=== PATIENT | female | born 1995 | race Caucasian/White ===

== ENCOUNTER 2019-10-30 16:48 | Inpatient (IN) | payer OTHER ==
[2019-10-30] MEDS ORDERED: Sodium Chloride 0.9% 10 ML Syringe FLUSH PRN (18:23)
[2019-10-30] MEDS ORDERED: Acetaminophen 325 MG Tab PO PRN (18:23)
[2019-10-30] MEDS ORDERED: Lidocaine 1% 30 ML SDV INJECT PRN (18:26)
[2019-10-30] MEDS ORDERED: Ondansetron 4 MG/2 ML SDV IV PRN (18:26)
[2019-10-30] MEDS ORDERED: Methylergonovine 0.2 MG/1 ML Amp IM PRN (18:26)
[2019-10-30] MEDS ORDERED: Carboprost Tromethamine 250 MCG/1 ML Amp IM PRN (18:26)
[2019-10-30] MEDS ORDERED: fentaNYL 100 MCG/2 ML SDV IVPUSH PRN (18:26)
[2019-10-30] MEDS ORDERED: Misoprostol 400 MCG (4 X 100 MCG TAB) RECTAL PRN (18:26)
[2019-10-30] MEDS ORDERED: Tranexamic Acid 1,000 MG in Sodium Chloride 0.9% 100 ML IV PRN (18:26)
[2019-10-30] MEDS ORDERED: Lactated Ringers 1,000 ML IV SCH (18:30)
[2019-10-30] MEDS ORDERED: Sodium Chloride 0.9% 1,000 ML IV SCH (19:25)
[2019-10-30] MEDS ORDERED: Magnesium Sulfate/Water 100 ML IV ONE (19:25)
[2019-10-30] MEDS: Lactated Ringers 1,000 ML IV SCH (19:41)
[2019-10-30] MEDS: Oxytocin/Normal Saline 30 UNIT/500 ML BAG IV SCH (19:44)
[2019-10-30] MEDS: hydrOXYzine HCl 25 MG Tab PO SCH (20:33)
[2019-10-30] MEDS: Labetalol 100 MG Tab PO SCH (20:34)
[2019-10-30] MEDS: Magnesium Sulfate/Water 20 GM/500 ML BAG IV SCH (20:46)
[2019-10-31] MEDS: hydrOXYzine HCl 25 MG Tab PO SCH ×3 (02:20→21:33)
[2019-10-31] MEDS: Magnesium Sulfate/Water 20 GM/500 ML BAG IV SCH ×2 (06:37→16:42)
[2019-10-31] MEDS: Labetalol 100 MG Tab PO SCH ×2 (08:29→21:12)
[2019-10-31] MEDS: Misoprostol 25 MCG (1/4 of 100 MCG) Tab VAG PRN ×4 (09:39→21:33)
--- NOTE | 2019-10-31 10:07 | PN ---
DATE: 10/31/2019 SUBJECTIVE: The patient is doing well. She had a good night and blood pressures have improved with her relaxing. She has been getting Pitocin through the night and notices when she has contractions and reports that they are stronger than what she has had in the past, but certainly easy to tolerate. No leakage of fluid or vaginal bleeding. movement has been good. No symptoms of preeclampsia at this time, and no other new complaints. OBJECTIVE: Vital Signs: Pulse in the 60s and 70s. Blood pressure is currently down to the 30s over 70s and 80s, highest overnight was 141/84 at 2 a.m., and last night shortly after admission, highest was 158/86. She is afebrile and respiratory rate of 16. Pelvic: Cervical exam performed this morning with nitrous oxide to assist with her being able to tolerate them, cervix is essentially closed, unable to really tell on the effacement, but feels like it is thinning and baby's station is at 0 and vertex. LABORATORY DATA: Magnesium is up to 5.4. Other labs from last night: White blood cell count 10.6, hemoglobin 12, platelets 124. BUN, creatinine, uric acid, AST, and ALT all normal. Lactate dehydrogenase mildly elevated at 219. Urine; 30 of protein on the dipstick, sjgsznn-je-ffixzhbfzv ratio of 0.62. ASSESSMENT: 1. A 40 and 2/7 weeks' gestation, 2, para 0-0-1-0. 2. Preeclampsia. PLAN: At this time, Pitocin has been all the way up to 20, and she has nothing for cervical change. Tibes shows coupling of the contractions and they are not strong enough to expect to be getting labor. At this time, we are going to discontinue the Pitocin, let her take a little bit of a break, and then we will place on Cytotec and see if we get improved cervical ripening through that method and recheck and change the plan as necessary. At the time being, she will continue on her magnesium sulfate as well, and we will allow blood pressure checks to decrease to half hour instead of every 15 minutes. [facility] /[id number]
[2019-10-31] MEDS ORDERED: hydrOXYzine HCl 25 MG Tab PO PRN (13:24)
[2019-11-01] MEDS: Misoprostol 25 MCG (1/4 of 100 MCG) Tab VAG PRN ×3 (01:48→11:29)
[2019-11-01] MEDS: Magnesium Sulfate/Water 20 GM/500 ML BAG IV SCH (04:23)
--- NOTE | 2019-11-01 10:23 | PN ---
DATE: 11/01/2019 SUBJECTIVE: Day #3, induction of labor for preeclampsia. This evening, the patient will be at 48 hours into the induction process, which was initially started with Pitocin and essentially made no progress, therefore, switched over to Cytotec, and she has been tolerating that and reports that she is now able to feel contractions. This gives her hope that she will be able to get into labor and have this baby vaginally. Otherwise, good movement. No chest pain or shortness of breath. No headaches or blurry vision. No right upper quadrant pain. No significant change in her edema. She has been quite sleepy because of the magnesium sulfate, but otherwise denies any acute concerns or new problems. OBJECTIVE: Vital Signs: Have been very good. Temperature is 98.0; pulse 68; blood pressure 140/84, generally had been in the mid 130s to 70s and 80s; respiratory rate of 16. HEART: Regular without any murmur. LUNGS: Clear to auscultation bilaterally. ABDOMEN: Gravid, nontender. heart tones tracing at 125 beats per minute at baseline. Accelerations are noted. Contractions are irregular, anywhere from every 2 to 7 minutes in between. On last cervical exam, she is 1 cm dilated, 65% effaced. Nurse can now palpate baby's head through the cervix and feels that reaching it is easier than it had been on prior checks. EXTREMITIES: 2+ edema bilaterally. Reflexes are 2+ and equal. ASSESSMENT: 1. A 40 and 3/7 weeks' gestation, 2, para 0-0-1-0. 2. Preeclampsia. 3. Prolonged induction. PLAN: At this time, we will continue to maximize our use of Cytotec to a total of 8 doses hoping to get to a Wheeler score of at least 7 before we need to switch over to Pitocin. Magnesium sulfate has been discontinued. She required 1 dose of p.o. labetalol when she first arrived for severe blood pressures. They have essentially been very good in the 140s over 90s at the highest and her seizure risk is a lot lower than would typically be anticipated and the magnesium sulfate may also be counterproductive for our efforts at induction of labor. We will see how that goes. The patient will continue to do her best to sit up when able to get gravity helping bring that baby down, and she has been advised to expect delivery sometime tomorrow unless we manage to have some surprise more rapid change prior to that. Her questions have been answered. [facility] /[id number]
[2019-11-01] MEDS: Labetalol 100 MG Tab PO SCH ×2 (10:44→21:00)
[2019-11-01] MEDS ORDERED: Nalbuphine 10 MG/1 ML Vial IM PRN (12:17)
[2019-11-01] MEDS: Lactated Ringers 1,000 ML IV SCH ×3 (14:07→20:35)
[2019-11-01] MEDS ORDERED: fentaNYL 100 MCG/2 ML SDV ONE (14:24)
[2019-11-01] MEDS ORDERED: Sodium Bicarbonate 4.2% 2.5 MEQ/5 ML SDV ONE (14:25)
[2019-11-01] MEDS ORDERED: EPINEPHrine 1 MG/1 ML Amp ONE (14:25)
[2019-11-01] MEDS ORDERED: ePHEDrine 50 MG/ML SDV ONE (14:26)
--- NOTE | 2019-11-01 14:45 | PCM.SN ---
- Free Text/Narrative Note: Intrathecal, sitting position, sterile prep and drape. 1% lidocaine w bicarb for skinwheal to L2 L3 interspace, introducer, 24 ga pemcan x 1. Pos CSF, neg heme, neg parasthesia. 20 mcg pf sufenta, 30 mcg pf fentanyl, 0.4 ml pf ns, 0.1 ml pf 1:1000 epi, and 6 mg of o.75% pf bupivacaine injected after CSF aspiration. Pt to L lateral position. Procedure time 1425 to 1455
[2019-11-01] MEDS: Oxytocin/Normal Saline 30 UNIT/500 ML BAG IV SCH ×3 (15:52→21:50)
[2019-11-01] MEDS ORDERED: Silver Nitrate Applicator Each ONE (21:00)
[2019-11-01] MEDS ORDERED: Ferric Subsulfate Topical Soln 8 GM (8 ML) Bottle ONE (21:00)
[2019-11-01] MEDS ORDERED: Oxytocin/Normal Saline 30 UNIT/500 ML BAG ONE (21:00)
[2019-11-01] MEDS ORDERED: Benzocaine/Menthol 20%-0.5% Spray 56 GM Canister TOP PRN (22:56)
[2019-11-01] MEDS ORDERED: Simethicone 80 MG Tab.Chew PO PRN (22:56)
[2019-11-01] MEDS: Piperacillin/Tazobactam 3.375 GM in Sodium Chloride 0.9% 100 ML IV SCH (23:39)
[2019-11-02] MEDS: Ibuprofen 800 MG Tab PO PRN ×3 (04:29→20:41)
--- NOTE | 2019-11-02 04:35 | DEL ---
DATE: 11/01/2019 PREPROCEDURE DIAGNOSES: 1. 40 and 3/7 weeks' intrauterine . 2. 2, para 0-0-1-0. 3. Preeclampsia. 4. Prolonged induction. POSTPROCEDURE DIAGNOSES: 1. 40 and 3/7 weeks' intrauterine . 2. 2, now para 1-0-1-1. 3. Preeclampsia. 4. Prolonged induction. 5. Post vacuum-assisted vaginal delivery. 6. Third-degree laceration repair. 7. Cervical laceration repair. 8. hemorrhage. 9. Asynclitic presentation. 10.Anemia of blood loss. BRIEF HISTORY: This is day #3 of the induction for patient, 23-year-old with the above-listed diagnoses. See prior progress notes for further details. The patient had been pushing for over an hour and was making very little progress and maternal exhaustion was clear. She was having a harder time with quality of pushes and would not be likely able to keep this up much longer and therefore vacuum-assisted vaginal delivery was offered. Baby also then started having some heart rate decelerations with contractions, so it was felt best to expedite delivery with vacuum assistance. Details are listed as below: PROCEDURE: With the patient in dorsal lithotomy position, vacuum discussion was had with the patient and her regarding indications of assisting because of maternal exhaustion as well as starting to develop some intolerance. Discussed with them risks including, but not limited to, vaginal trauma, trauma to the baby's head, potential for causing intraventricular hemorrhage, potential for shoulder dystocia, potential for failed vacuum and need of emergent section, potential for increased blood loss, and their questions were answered and we had agreed to proceed. Different positions were considered, but the patient was really unable to reposition herself. We had tried different pushing techniques during labor. The patient was appropriately prepared and there was a high probability of success. Baby was estimated to be appropriate for gestational age. Pelvis was adequate. She was in OA position and felt to be lined up normally and station of +2. Maximum number of pop offs was predetermined as 3 and application time would be a maximum of 20 minutes. The vacuum was applied and maximum pressure was in the green zone at 450 to 600 mmHg. Total application time was 5 minutes. Number of pop-offs 0. Standard Kiwi vacuum was the type used. With assisting through 2 contractions, she was able to deliver the baby. After the baby's head was brought out of the vagina with vacuum and removed, 3 nuchal cords were reduced bluntly. Remainder of the infant was delivered thereafter. With delivery of the head, the 's left hand was noted to be tucked up underneath the baby's chin. With delivery of the baby, she had been dried and stimulated. Mouth and nose were bulb suctioned and baby placed upon mother's abdomen. Three-vessel umbilical cord cutting was delayed by at least 1 to 2 minutes and cord blood sample was then obtained. Placenta was attempted to be delivered by gentle cord traction and concomitant uterine massage, but was not forthcoming. The patient was having heavy bleeding. Therefore, Pitocin was turned on at 9, 9, 9 and a dose of 800 mcg of Cytotec was placed in her rectum. New sterile gloves were donned and repeated efforts to deliver the placenta were made. There was a third-degree laceration present, but not an obvious source for the heavy bleeding. There was some concern of potential cervical laceration at that time and the placenta was still not letting go. Therefore, dose of TXA was called for. I manually removed the placenta, and during that process, I felt that there was a ridge or septation-like deformity in the fundus of the uterus, could possibly be a fibroid, which none of these things were previously noted on ultrasound. The area palpated approximately 3 cm in length by about 2 cm in width and seemed to run in the lateral [id number] plane rather than in the AP direction. After the placenta was removed, the patient's bleeding continued to be brisk. I inspected the vagina and cervix and found a fairly good-sized portion of trailing membranes which were removed with gauze and ring forceps. Uterus was bimanually massaged and very firm at this time. Bleeding continued. I was using sponges and sponge sticks to try and get adequate visualization of the vagina and cervix, and I was unable to see the posterior aspect of the cervix. I then took my fingers and ran them around the edge of the cervix and found a defect around the 7 to 8 o'clock position and had a concern for cervical laceration. Due to the rapid blood flow and inability to see the cervix for repair, I elected to place my hands in bimanual exam position and hold pressure on the area while calling for assistance of Dr. Palacios. During this time, the blood flow was very well controlled simply by tamponading the area. Once Dr. Palacios arrived, he assisted me with further inspection of the vagina and cervix. He agreed that there was a laceration present in the 7 to 8 o'clock position about a 1.5 cm to 2 cm in size. He successfully placed 1 or 2 stitches of 3-0 Vicryl through this and good hemostasis was achieved. The strings were left long while I proceeded to repair the third-degree laceration in standard fashion with 3-0 Vicryl. We had good approximation and hemostasis at this time. Dr. Palacios also explored the uterus himself, concurred that there was an abnormal feeling in the apex to posterior area of the uterus that would warrant further evaluation in the future. We gently reinspected the vagina and cervix. The cervical repair area remained hemostatic. The vaginal repair was intact and not bleeding. The patient was only having the normal serosanguineous type of drainage from the uterus that would be considered normal and had tolerated things quite well. Her intrathecal was still working well at this time, and we were able to perform all of the above procedures in the room. After the procedure was completed, sponge counts were correct. ESTIMATED BLOOD LOSS: 1.5 L. COMPLICATIONS: hemorrhage due to cervical laceration, suspected to be caused by baby's position of the hand up near the cheek, naturally followed thereafter by the elbow. There is possibility that the laceration was caused by the vacuum as well. DISPOSITION: The patient staying in the delivery room and her baby will be returned to her soon so they can initiate breast-feeding. Stat hemoglobin came back at 9.7. Her admission hemoglobin was 12.0. There are 2 units of packed red blood cells ready and on hold for her in the laboratory department should that be necessary. We will continue to keep a very close watch of her bleeding and monitor for any concerns and have a low threshold for reinspection should she start having heavier than expected bleeding. She will also be started on Zosyn antibiotics due to the repeat uterine exploration and the need for complicated repair. Anticipate that we will keep that going for the next 24 hours and then possibly switch her over to an oral antibiotic for longer coverage. [facility] /[id number]
[2019-11-02] MEDS: Piperacillin/Tazobactam 3.375 GM in Sodium Chloride 0.9% 100 ML IV SCH ×3 (05:12→20:41)
[2019-11-02] MEDS: Docusate Sodium 100 MG Cap PO PRN ×2 (09:17→20:41)
[2019-11-02] MEDS: Ferrous Sulfate 325 MG Tab PO SCH ×2 (09:17→20:41)
[2019-11-02] MEDS: Prenatal Multivitamin with Calcium/Folic Acid/Iron Tab PO SCH (09:17)
[2019-11-02] MEDS ORDERED: Lidocaine 5% Oint 35.44 GM Tube TOP ONE (09:33)
[2019-11-02] MEDS ORDERED: EPINEPHrine 1 MG/1 ML Amp ONE (11:48)
[2019-11-02] MEDS ORDERED: fentaNYL 100 MCG/2 ML SDV ITHECAL ONE (11:48)
[2019-11-02] MEDS ORDERED: Sodium Bicarbonate 4.2% 2.5 MEQ/5 ML SDV ONE (11:48)
--- NOTE | 2019-11-02 13:17 | PN ---
DATE: 11/02/2019 SUBJECTIVE: day #1, status post vacuum-assisted vaginal delivery complicated by cervical laceration and hemorrhage requiring manual removal of the placenta, repair of the surgical laceration, and third-degree repair. The patient's blood loss estimated 1500 to 2000 mL. She is denying any chest pain or shortness of breath. When she was up to ambulate, she denies any increase in chest pressure, lightheadedness, dizziness, or other typical symptoms of anemia. Her blood flow has been good overnight and appropriate for normal vaginal delivery. She is her baby, but her milk is not yet in as would be expected under these circumstances. Otherwise, her pain is controlled. She and nursing staff do not have any other acute concerns. Nurses report that she has not voided since delivery and they were preparing to straight catheterization, however, just before they did that they were able to get the patient to void spontaneously. OBJECTIVE: General: A pleasant 23-year-old female. Vital Signs: Temperature is 97.9, pulse of 80, blood pressure 138/82, respiratory rate of 16. Heart: Regular without murmur. Lungs: Clear to auscultation bilaterally. Abdomen: Soft and nontender. Fundus is firm and below the umbilicus. Extremities: 1+ pitting edema at this time. LABORATORY DATA: Hemoglobin is 7.0 and platelets 221. ASSESSMENT: 1. 2, now para 1-0-1-1. 2. Status post vacuum-assisted vaginal delivery, complicated. 3. Preeclampsia. 4. Post prolonged induction. 5. Post third-degree laceration repair. Post cervical laceration repair. 1. hemorrhage. 2. Anemia of blood loss. PLAN: Continue normal cares at this time. The patient has been stabilized and is doing well. Continue to watch for any sort of signs of infection and with the IV Zosyn. Monitor for worsening symptoms of anemia and consider blood transfusion would be necessary. Otherwise, continue normal course and anticipate discharge home tomorrow. Dr. Funes will be covering in my absence. [facility] /[id number]
[2019-11-03] MEDS: Ibuprofen 800 MG Tab PO PRN ×2 (07:37→15:55)
[2019-11-03] MEDS: Prenatal Multivitamin with Calcium/Folic Acid/Iron Tab PO SCH (09:10)
[2019-11-03] MEDS: Ferrous Sulfate 325 MG Tab PO SCH (09:10)
--- NOTE | 2019-11-03 09:16 | PCM.PNPP ---
- General Info Date of Service: 11/03/19 (Vacuum Assisted Vaginal Delivery PPD # 2) Functional Status: Reports: Pain Controlled, Tolerating Diet, Ambulating, Urinating - Review of Systems General: Reports: No Symptoms HEENT: Reports: No Symptoms Pulmonary: Reports: No Symptoms Cardiovascular: Reports: No Symptoms Gastrointestinal: Reports: No Symptoms Genitourinary: Reports: No Symptoms Musculoskeletal: Reports: No Symptoms Skin: Reports: No Symptoms Neurological: Reports: No Symptoms Psychiatric: Reports: No Symptoms - General Info Date of Service: 11/03/19 (Vacuum Assisted Vaginal Delivery PPD # 2) - Patient Data Vital Signs - Most Recent: Last Vital Signs Temp 99.4 F 11/03/19 07:37 Pulse 81 11/02/19 21:45 Resp 16 11/02/19 21:45 BP 105/88 11/02/19 21:45 Pulse Ox 100 11/02/19 21:45 Weight - Most Recent: 179 lb Lab Results - Last 24 Hours: Laboratory Results - last 24 hr 11/03/19 Range/Units 06:17 WBC 21.0 H (5.0-10.0) 10^3/uL RBC 2.16 L (4.2-5.4) 10^6/uL Hgb 6.6 L* (12.0-16.0) g/dL Hct 20.4 L* (37.0-47.0) % MCV 94.4 (80-100) fL MCH 30.6 (27.0-34.0) pg MCHC 32.4 L (33.0-35.0) g/dL Plt Count 223 (150-450) 10^3/uL Neut % (Auto) 66.2 (42.2-75.2) % Lymph % (Auto) 22.9 (20.5-50.1) % [place] % (Auto) 9.9 H (2-8) % Eos % (Auto) 0.9 L (1.0-3.0) % Baso % (Auto) 0.1 (0.0-1.0) % Add Manual Diff Yes Neutrophils % (Manual) 60 (42-75) % Band Neutrophils % 9 % Lymphocytes % (Manual) 22 (20-50) % Monocytes % (Manual) 8 (2-8) % Eosinophils % (Manual) 1 (1-3) % Med Orders - Current: Current Medications Acetaminophen (Tylenol) 650 mg PO Q4H PRN PRN Reason: Pain/Fever Benzocaine/Menthol (Dermoplast Pain Relief [place]) 0 gm TOP Q4H PRN PRN Reason: Perineal comfort measures Last Admin: 11/02/19 06:43 Dose: 1 spray Carboprost Tromethamine (Hemabate Ds) 250 mcg IM ASDIRECTED PRN PRN Reason: HEMORRHAGE Last Admin: 11/01/19 21:15 Dose: 250 mcg Docusate Sodium (Colace) 100 mg PO BID PRN PRN Reason: Constipation Last Admin: 11/02/19 20:41 Dose: 100 mg Ferrous Sulfate (Ferrous Sulfate) 325 mg PO BID KENISHA Last Admin: 11/03/19 09:10 Dose: 325 mg Oxytocin/Sodium Chloride (Pitocin In Ns 30 Unit/500 Ml) 30 unit in 500 mls @ 2 mls/hr IV TITRATE KENISHA; Protocol Last Admin: 11/01/19 21:50 Dose: 250 mls/hr Tranexamic Acid 1,000 mg/ (Sodium Chloride) 110 mls @ 660 mls/hr IV ONETIME PRN PRN Reason: Bleeding Last Admin: 11/01/19 20:27 Dose: 660 mls/hr Ibuprofen (Motrin) 800 mg PO Q8H PRN PRN Reason: Mild Pain or Fever Last Admin: 11/03/19 07:37 Dose: 800 mg Methylergonovine Maleate (Methergine) 0.2 mg IM ASDIRECTED PRN PRN Reason: Hemorrhage Misoprostol (Cytotec) 800 mcg RECTAL ASDIRECTED PRN PRN Reason: Hemorrhage Last Admin: 11/01/19 20:13 Dose: 800 mcg Prenat Multivit/Webb/Iron/Folic Ac ( Plus Iron) 1 each PO DAILY [facility] Last Admin: 11/03/19 09:10 Dose: 1 each Simethicone (Simethicone) 80 mg PO Q4H PRN PRN Reason: Gas Discontinued Medications Ephedrine Sulfate (Ephedrine Sulfate) Confirm Administered Dose 50 mg .ROUTE .STK-MED ONE Stop: 11/01/19 14:27 Last Admin: 11/01/19 15:58 Dose: Not Given Epinephrine HCl (Adrenalin) Confirm Administered Dose 1 mg .ROUTE .STK-MED ONE Stop: 11/01/19 14:26 Last Admin: 11/01/19 15:57 Dose: Not Given Epinephrine HCl (Adrenalin) 0.1 mg .XX .STK-MED ONE Stop: 11/02/19 11:49 Fentanyl (Sublimaze) 100 mcg IVPUSH Q1H PRN PRN Reason: Pain (moderate 4-6) Fentanyl (Sublimaze) Confirm Administered Dose 100 mcg .ROUTE .STK-MED ONE Stop: 11/01/19 14:25 Last Admin: 11/01/19 15:57 Dose: Not Given Fentanyl (Sublimaze) 30 mcg ITHECAL .STK-MED ONE Stop: 11/02/19 11:49 Ferric Subsulfate (Astringyn) Confirm Administered Dose 8 gm .ROUTE .STK-MED ONE Stop: 11/01/19 21:01 Hydroxyzine HCl (Atarax) 25 mg PO BEDTIME [facility] Last Admin: 10/31/19 21:33 Dose: Not Given Hydroxyzine HCl (Atarax) 25 mg PO Q8HR PRN PRN Reason: Sleep Lactated Ringer's (Ringers, Lactated) 1,000 mls @ 999 mls/hr IV ASDIRECTED [facility] Lactated Ringer's (Ringers, Lactated) 1,000 mls @ 125 mls/hr IV ASDIRECTED [facility] Last Admin: 11/01/19 20:35 Dose: 125 mls/hr Magnesium Sulfate (Magnesium Sulfate In Water Premix) 100 mls @ 200 mls/hr IV ONETIME ONE Stop: 10/30/19 19:54 Last Admin: 10/30/19 20:18 Dose: 200 mls/hr Magnesium Sulfate (Magnesium Sulfate In Water Premix) 20 gm in 500 mls @ 50 mls /hr IV TITRATE [facility] Last Infusion: 11/01/19 08:20 Dose: 0 mls/hr Sodium Chloride (Normal Saline) 1,000 mls @ 25 mls/hr IV ASDIRECTED [facility] Stop: 11/04/19 05:58 Last Admin: 11/01/19 03:53 Dose: 25 mls/hr Oxytocin/Sodium Chloride (Pitocin In Ns 30 Unit/500 Ml) Confirm Administered Dose 30 unit in 500 mls @ as directed .ROUTE .STK-MED ONE Stop: 11/01/19 21:01 Piperacillin Sod/Tazobactam (Sod 3.375 gm/ Sodium Chloride) 100 mls @ 200 mls/ hr IV Q6H [facility] Last Admin: 11/02/19 20:41 Dose: 200 mls/hr Labetalol HCl (Normodyne) 100 mg PO BID [facility] Last Admin: 11/01/19 21:00 Dose: Not Given Lidocaine HCl (Xylocaine-Mpf 1%) 30 ml INJECT ASDIRECTED PRN PRN Reason: Perineal Repair Lidocaine HCl (Lidocaine 5%) 0 gm TOP ONETIME ONE Stop: 11/02/19 09:34 Last Admin: 11/02/19 18:15 Dose: Not Given Misoprostol (Cytotec) 25 mcg VAG Q4H PRN PRN Reason: Other Last Admin: 11/01/19 11:29 Dose: 25 mcg Nalbuphine HCl (Nubain) 20 mg IM ONETIME PRN PRN Reason: Pain (moderate 4-6) Ondansetron HCl (Zofran) 4 mg IV Q4H PRN PRN Reason: Nausea/Vomiting Last Admin: 11/01/19 14:27 Dose: 4 mg Silver Nitrate (Silver Nitrate) Confirm Administered Dose 1 each .ROUTE .STK- MED ONE Stop: 11/01/19 21:01 Sodium Bicarbonate (Sodium Bicarbonate 4.2%) Confirm Administered Dose 2.5 meq .ROUTE .STK-MED ONE Stop: 11/01/19 14:26 Last Admin: 11/01/19 15:58 Dose: Not Given Sodium Bicarbonate (Sodium Bicarbonate 4.2%) 0.5 meq .XX .STK-MED ONE Stop: 11/02/19 11:49 Sodium Chloride (Saline Flush) 10 ml FLUSH ASDIRECTED PRN PRN Reason: Keep Vein Open Last Admin: 10/31/19 21:17 Dose: 10 ml Sufentanil Citrate (Sufenta) Confirm Administered Dose 50 mcg .ROUTE .STK-MED ONE Stop: 11/01/19 14:26 Last Admin: 11/01/19 15:58 Dose: Not Given Sufentanil Citrate (Sufenta) 20 mcg ITHECAL .STK-MED ONE Stop: 11/02/19 11:49 - Interaction Infant Disposition, : [place] in Room with Family Interaction: Holding Feeding: Attempted ; Nursed Fair/Poor Support Person: - Recovery Exam Fundal Tone: Firm Fundal Level: 1 Fingerbreadths Below Umbilicus Fundal Placement: Midline Lochia Amount: Small Lochia Color: Rubra/Red Perineum Description: Intact, Minimal Bruising/Swelling Episiotomy/Laceration: Approximated Bladder Status: Voiding Urinary Elimination: Not Voiding - Exam General: Alert, Oriented, Cooperative, No Acute Distress HEENT: Pupils Equal, Pupils Reactive, EOMI, Mucous Membr. Moist/[place] Neck: Supple Lungs: Clear to Auscultation, Normal Respiratory Effort Cardiovascular: Regular Rate, Regular Rhythm, No Murmurs GI/Abdominal Exam: Normal Bowel Sounds, Soft, Non-Tender, No Distention Extremities: Normal Inspection, Normal Range of Motion, Non-Tender Skin: Warm, Dry, Intact Wound/Incisions: Healing Well Neurological: No New Focal Deficit Psy/Mental Status: Alert, Normal Affect, Normal Mood - Problem List Review Problem List Initiated/Reviewed/Updated: Yes - Assessment Assessment:: PPD # 2 S/P Vacuum assisted vaginal delivery Acute anemia secondary to blood loss- Asymptomatic - Plan Plan:: Discharge to home Follow-up with Dr. Guerrier next week Iron, PNV and Ibuprofen as prescribed
--- NOTE | 2019-11-03 17:13 | DISCH ---
INDICATION FOR ADMISSION: Margot is a 23-year-old 2, para 0-0-1-0 female who reported to Labor and Delivery at 40-3/7 weeks' gestation because of preeclampsia. Magnesium sulfate for seizure prophylaxis. She did have Cytotec cervical ripening and Pitocin induction. There was a prolonged induction. Once she got to complete, she started pushingand she pushed for over an hour, was making very little progress and hadmaternal exhaustion. She started having a harder time pushing, so a vacuum- assisted vaginal delivery was accomplished with delivery of a viable femaleinfant weighing 7 pounds 9 ounces with score of 7 at one minute, 9 at fiveminutes over a third-degree perineal laceration. She did have a hemorrhage and was given Pitocin and was noted to be bleeding from her cervix. There was a laceration of the cervix that was repaired by Dr. Tushar Palacios and a third-degree laceration was repaired by Dr. Alexis Kent. She did quite well after this. She was noted to have approximately 1500 to 2000 mL blood loss. She was watched very closely and she tolerated the rest of her hospital stay quite well. She is afebrile. Vital signs are stable. She tolerated her diet well. She ambulated quite well. She was not lightheaded or dizzy. Her hemoglobin did drop to 6.6 on the day of discharge. She was offered a blood transfusion, but she declined this. She will increase her hemoglobin with iron and vitamins. There was a nuchal cord x3 around the infant at after recovery, she had no other complications of her hospital stay. Her blood pressures remained stable and normal throughout her post delivery hospital stay. She was discharged to home on day #2. LABORATORY AND DIAGNOSTIC STUDIES: On 11/01/2019, hemoglobin 9.7. 11/02/2019, hemoglobin 7.0, hematocrit 21.6, platelet count 221,000. 11/03/2019, hemoglobin 6.6, hematocrit 20.4, platelet count 223,000. DISCHARGE INSTRUCTIONS: 1. Discharge to home. 2. Followup with Dr. Alexis Kent next week for hemoglobin check along with infant check. 3. Iron/ferrous sulfate 325 mg twice a day. 4. Ibuprofen 800 mg 1 tablet t.i.d. p.r.n. for pain. 5. Tylenol t.i.d. p.r.n. for pain. 6. Colace b.i.d. p.r.n. for pain. 7. vitamin 1 tablet daily. 8. No douching, tampons, intercourse for 6 weeks. 9. Discharge instructions including activity, followup, medications, diet, and wound care were discussed with the patient. She understands these and is willing to comply with these. DISCHARGE DIAGNOSES: 1. 40-3/7 week intrauterine . 2. Preeclampsia with Magnesium sulfate for seizure prophylaxis. 3. Prolonged induction. 4. Vacuum-assisted vaginal delivery of a viable female infant weighing 7 pounds 9 ounces with score of 7 at one minute, 9 at five minutes. 5. Nuchal cord x3. 6. hemorrhage 7. Third-degree laceration, cervical laceration, both repaired. 8. Asynclitic presentation. 9. Acute anemia secondary to blood loss. [facility] /[id number] MTDD
== END 2019-11-03 17:00 | disposition home or self-care (01) | DRG 768 ==
LOC: DL.OBCHECK 16:48 → DL.OB 18:23 → OBSVTOIN 11-01 20:08
PROVIDERS: ADMIT Family Medicine; ATTEND Family Medicine
PROC: 10D07Z6 Extraction of Products of Conception, Vacuum, Via Natural or Artificial Opening (ICD-10-PCS; principal; 2019-11-01)
PROC: 00HU33Z Insertion of Infusion Device into Spinal Canal, Percutaneous Approach (ICD-10-PCS; 2019-11-01)
PROC: 3E0R3BZ Introduction of Anesthetic Agent into Spinal Canal, Percutaneous Approach (ICD-10-PCS; 2019-11-01)
PROC: 0DQR0ZZ Repair Anal Sphincter, Open Approach (ICD-10-PCS; 2019-11-01)
PROC: 10D17Z9 Manual Extraction of Products of Conception, Retained, Via Natural or Artificial Opening (ICD-10-PCS; 2019-11-01)
PROC: 0UQC7ZZ Repair Cervix, Via Natural or Artificial Opening (ICD-10-PCS; 2019-11-01)
PROC: 6A550ZT Pheresis of Cord Blood Stem Cells, Single (ICD-10-PCS; 2019-11-01)
PROC: 3E0P7VZ Introduction of Hormone into Female Reproductive, Via Natural or Artificial Opening (ICD-10-PCS; 2019-11-01)
PROC: 3E033VJ Introduction of Other Hormone into Peripheral Vein, Percutaneous Approach (ICD-10-PCS; 2019-11-01)
DX: O14.94 Unspecified pre-eclampsia, complicating childbirth (principal); Z37.0 Single live birth; D62 Acute posthemorrhagic anemia; Z3A.40 40 weeks gestation of pregnancy; O70.20 Third degree perineal laceration during delivery, unspecified; O71.3 Obstetric laceration of cervix; O75.81 Maternal exhaustion complicating labor and delivery; O69.81X0 Labor and delivery complicated by cord around neck, without compression, not applicable or unspecified; O32.8XX0 Maternal care for other malpresentation of fetus, not applicable or unspecified; O90.81 Anemia of the puerperium; O99.344 Other mental disorders complicating childbirth; F41.9 Anxiety disorder, unspecified; O99.62 Diseases of the digestive system complicating childbirth; K92.9 Disease of digestive system, unspecified; K58.9 Irritable bowel syndrome, unspecified; O13.4 Gestational [pregnancy-induced] hypertension without significant proteinuria, complicating childbirth; O76 Abnormality in fetal heart rate and rhythm complicating labor and delivery; O34.13 Maternal care for benign tumor of corpus uteri, third trimester; D25.9 Leiomyoma of uterus, unspecified; O72.2 Delayed and secondary postpartum hemorrhage
CPT/HCPCS: 36415; 51701; 59025; 59409; 81003; 82565; 82570; 83615; 83735; 84156; 84450; 84460; 84520; 84550; 85018; 85025; 85027; 86850; 86900; 86901; 86920; 86922; A9270-GY; J0171; J2405; J2543; J2590; J3010; J3475; J7030; J7050; J7120

== ENCOUNTER 2021-08-08 01:25 | Observation (INO) | payer SELFPAY ==
[2021-08-08] MEDS ORDERED: Acetaminophen 325 MG Tab PO PRN (03:18)
[2021-08-08] MEDS ORDERED: ePHEDrine 50 MG/ML SDV IVPUSH PRN (03:18)
[2021-08-08] MEDS ORDERED: Naloxone 2 MG/2 ML Syringe IVPUSH PRN (03:18)
[2021-08-08] MEDS ORDERED: Ondansetron 4 MG/2 ML SDV IVPUSH PRN ×2 (03:18)
[2021-08-08] MEDS ORDERED: Promethazine 25 MG/ML SDV IM PRN (03:18)
[2021-08-08] MEDS ORDERED: Methylergonovine 0.2 MG/1 ML Amp IM PRN (03:18)
[2021-08-08] MEDS ORDERED: Famotidine 20 MG/2 ML SDV IVPUSH PRN (03:18)
[2021-08-08] MEDS ORDERED: Sodium Chloride 0.9% 10 ML Syringe FLUSH PRN (03:18)
[2021-08-08] MEDS ORDERED: Lactated Ringers 1,000 ML IV ONE (03:18)
[2021-08-08] MEDS ORDERED: Carboprost Tromethamine 250 MCG/1 ML Amp IM PRN (03:18)
[2021-08-08] MEDS ORDERED: Lidocaine 1% 30 ML SDV INJECT PRN (03:18)
[2021-08-08] MEDS ORDERED: Tranexamic Acid 1,000 MG in Sodium Chloride 0.9% 100 ML IV PRN (03:18)
[2021-08-08] MEDS ORDERED: Misoprostol 400 MCG (4 X 100 MCG TAB) RECTAL PRN (03:18)
[2021-08-08] MEDS ORDERED: Lactated Ringers 1,000 ML IV SCH (03:30)
[2021-08-08] MEDS ORDERED: Lactated Ringers 500 ML IV SCH (03:30)
[2021-08-08] MEDS ORDERED: Oxytocin/Normal Saline 30 UNIT/500 ML BAG IV SCH (03:30)
--- NOTE | 2021-08-08 05:02 | HP ---
CHIEF COMPLAINT: Increased force and frequency of contractions. HISTORY OF PRESENT ILLNESS: A 25-year-old 3, para 1-0-1-1, currently at 38-6/7 weeks' gestation, reporting to Labor and Delivery with onset of regular contractions earlier tonight approximately every 7 to 8 minutes and then during the drive to the hospital became every 3 minutes. No leakage of fluid or vaginal bleeding. movement has been good. She denies any symptoms of preeclampsia. She is concerned about potential for repeat cervical laceration with hemorrhage as she had with her first delivery and that the baby seems to be measuring a little bit on the large side and how well the baby will come down and basically how labor will progress. Otherwise, no acute concerns. OBSTETRICAL HISTORY: 1. 12/20/2018, 4 weeks 6 days' gestation, had a spontaneous and did not require any intervention. 2. 11/01/2019, 40 weeks 3 days' gestation, spontaneous vaginal delivery, baby girl weighing 3415 g. There was an estimated 1500 to 2000 mL of blood loss due to a cervical laceration. Daughter's name is Desiree. At that delivery, it was noted that she had a small septum that ran across the top of the uterus in the lateral plane. OBSTETRICAL LABORATORIES: Blood type O positive, antibody screen negative, rubella immune, syphilis nonreactive x2, hepatitis B negative, HIV negative, gonorrhea and chlamydia negative, TSH normal at 0.61, hepatitis C negative, wet prep negative, last hemoglobin in the office 12.0, platelets 193, group B strep negative. PAST MEDICAL HISTORY: Anxiety, irritable bowel syndrome, miscarriage x1, primary Raynaud phenomenon, and uterine shape abnormality. PAST SURGICAL HISTORY: None. FAMILY HISTORY: Mother is alive and well. Father has anxiety, prediabetes, and cardiac arrhythmia. Sister has an arrhythmia. Brother is alive and well. Maternal grandmother is alive and well. Maternal grandfather is alive, had a stroke in his 60s and some heart disease. Paternal grandmother is and had diabetes. Paternal grandfather is , had parkinsonism and a pacemaker. Paternal aunt has seizures. A paternal great grandmother had a history of twins. FAMILY HISTORY: Negative for defects, cystic fibrosis, anesthesia problems, or bleeding and clotting disorders. SOCIAL HISTORY: The patient does not use any tobacco, alcohol, or drugs. She and her were in 2014. He works as a gaitan, and she stays at home with their daughter. This was a planned . REVIEW OF SYSTEMS: Pertinent positives and negatives are per the history of present illness. No fevers, chills, chest pain, shortness of breath, headaches, blurry vision, right upper quadrant pain, nausea, vomiting, diarrhea, constipation, or acute skin changes. OBJECTIVE: Vital Signs: Blood pressure 130/86 initially, decreased on recheck; pulse 78; respiratory rate of 18; and temperature 98.0. HEENT: Grossly unremarkable. Neck: Supple without adenopathy. Heart: Regular without murmur. Lungs: Clear to auscultation bilaterally. Abdomen: Gravid, firm with contractions. Increased vascular markings are noted. [place] shows heart rate at 115 beats per minute at baseline. Moderate [id number] variability and accelerations are noted. Contractions every 3 minutes. Pelvic: Cervical exam per the nurse is about 3 cm dilated, 90% effaced, 0 station. Bag of water is intact. Baby is vertex. Extremities: No edema, erythema, or tenderness. Neurological: No focal findings. ASSESSMENT: 1. A 38-6/7 weeks' intrauterine based on last menstrual period. 2. 3, para 1-0-1-1. 3. History of cervical laceration and hemorrhage with the last delivery. 4. History of spontaneous miscarriage. 5. Uterine septum. 6. Irritable bowel syndrome. 7. Anxiety. 8. Primary Raynaud phenomenon. PLAN: The patient will be admitted to Labor and Delivery, and we will be anticipating a natural labor course. We will intervene with augmentation if necessary. We will be on high alert for potential repeat cervical laceration as a potential cause of hemorrhage and take active management steps. We will also keep her family well informed. I did review with her that things are expected to go fairly well at around 37 weeks. She had an ultrasound showing the baby was measuring at the 84.3rd percentile. Estimated weight at that time was 3243 g, so this baby may end up being larger than her first, however, not anticipating significant macrosomia. [facility] /[id number]
== END 2021-08-08 10:10 | disposition home or self-care (01) ==
LOC: DL.OBCHECK 01:25 → DL.OB 02:55
PROVIDERS: ADMIT Family Medicine; ATTEND Family Medicine
DX: O47.1 False labor at or after 37 completed weeks of gestation (principal); Z3A.38 38 weeks gestation of pregnancy; O99.343 Other mental disorders complicating pregnancy, third trimester; I73.00 Raynaud's syndrome without gangrene; Z20.822 Contact with and (suspected) exposure to COVID-19
CPT/HCPCS: 36415; 85027; 87635; G0378; U0002

== ENCOUNTER 2021-08-12 08:05 | Inpatient (IN) | payer SELFPAY ==
[~2021-08-12 08:05] MED LIST: Acetaminophen 325 MG Tab PO PRN; Carboprost Tromethamine 250 MCG/1 ML Amp IM PRN; Lactated Ringers 1,000 ML IV ONE; Lactated Ringers 500 ML IV SCH; Lidocaine 1% 30 ML SDV INJECT PRN; Methylergonovine 0.2 MG/1 ML Amp IM PRN; Misoprostol 400 MCG (4 X 100 MCG TAB) RECTAL PRN; Naloxone 2 MG/2 ML Syringe IVPUSH PRN; Ondansetron 4 MG/2 ML SDV IVPUSH PRN; Oxytocin/Normal Saline 30 UNIT/500 ML BAG IV SCH; Promethazine 25 MG/ML SDV IM PRN; Sodium Chloride 0.9% 10 ML Syringe FLUSH PRN; Tranexamic Acid 1,000 MG in Sodium Chloride 0.9% 100 ML IV PRN; ePHEDrine 50 MG/ML SDV IVPUSH PRN; fentaNYL 100 MCG/2 ML SDV IVPUSH PRN
[2021-08-12] MEDS: Lactated Ringers 1,000 ML IV SCH (10:38)
[2021-08-12] MEDS: Oxytocin/Normal Saline 30 UNIT/500 ML BAG IV SCH ×2 (10:40→22:08)
[2021-08-12] MEDS ORDERED: Sodium Chloride 0.9% 20 ML SDV ONE (16:10)
[2021-08-12] MEDS ORDERED: EPINEPHrine 1 MG/ML SDV ONE ×2 (16:10→16:22)
[2021-08-12] MEDS ORDERED: fentaNYL 100 MCG/2 ML SDV ITHECAL ONE (16:10)
[2021-08-12] MEDS ORDERED: fentaNYL 100 MCG/2 ML SDV ONE (16:21)
[2021-08-12] MEDS ORDERED: Sodium Bicarbonate 4.2% 2.5 MEQ/5 ML SDV ONE (16:22)
--- NOTE | 2021-08-12 16:54 | PCM.SN.2 ---
- Free Text/Narrative Note: Intrathecal. Sitting position, sterile prep and drape. 1% lidocaine w bicarb for skinwheal to L2 L3 interspace. Introducer, 24 ga pencan x 2. 0.1 ml of I:1000 pf epi wash, 20 mcg pf sufenta, 30 mcg pf fentanyl, 0.4 ml pf NS and 6 mg of 0.75% pf Marcaine injected after CSF aspiration. Pt to L lateral position. Procedure time 1620 to 1655 Time Documentation
[2021-08-12] MEDS ORDERED: Benzocaine/Menthol 20%-0.5% Spray 78 GM Cannister TOP PRN (22:37)
[2021-08-12] MEDS ORDERED: Simethicone 80 MG Tab.Chew PO PRN (22:37)
[2021-08-12] MEDS ORDERED: Oxytocin 10 Units/1 ML SDV IM PRN (22:37)
[2021-08-12] MEDS ORDERED: ceFAZolin 1 GM in Sodium Chloride 0.9% 50 ML IV SCH (23:56)
--- NOTE | 2021-08-13 04:07 | DEL ---
DATE: 08/12/2021 PREPROCEDURE DIAGNOSES: 1. 39 and 3/7 weeks intrauterine . 2. 3, para 1-0-1-1. 3. History of cervical laceration with hemorrhage after her 1st delivery. 4. History of spontaneous x1. 5. Lateral oriented uterine septum found at 1st delivery. 6. Irritable bowel syndrome. 7. Anxiety. 8. Placenta with septum noted on ultrasound. growth has been good. 9. Primary Raynaud's phenomenon. 10.Group B strep negative. 11.Blood type O positive and rubella immune. POSTPROCEDURE DIAGNOSES: 1. 39 and 3/7 weeks intrauterine . 2. 3, now para 2-0-1-2. 3. History of cervical laceration with hemorrhage after her 1st delivery. 4. History of spontaneous x1. 5. Lateral oriented uterine septum found at 1st delivery. 6. Irritable bowel syndrome. 7. Anxiety. 8. Placenta with septum noted on ultrasound. growth has been good. 9. Primary Raynaud's phenomenon. 10.Group B strep negative. 11.Blood type O positive and rubella immune. 12.Status post spontaneous vaginal delivery with third-degree laceration repair. 13.Uterine inversion. 14. hemorrhage. 15.Manual repositioning of the uterus. 16.Circumvallate placenta with shelf, noted to be circumferential, also associated calcification consistent overall with likely vanishing twin as the etiology. 17.Hypovolemic shock. BRIEF HISTORY: A 25-year-old female brought into the hospital earlier today for planned induction of labor due to concern for macrosomia, 20-week ultrasound. Baby was above the 90th percentile for weight and on 2nd ultrasound at 34 weeks was about 84% for growth. CAMERON was only 14.2. With her history of cervical laceration, it was felt beneficial to have her induced at 39 weeks to help decrease risk of macrosomia complicating delivery. She presented to the hospital and was already having some spontaneous contractions that were not very strong. Pitocin was initiated and she had reached about 7 cm dilated and intrathecal was placed for her comfort. I then came in and assessed her and baby was still ballotable and she was having very regular painful contractions. So, artificial rupture of membranes was carefully performed with copious amounts of clear fluid much more than was anticipated. She then went on to complete, and after 8 hours of stage I, pushed for 1 hour and 20 minutes resulting in a vaginal delivery with details as noted below. The placenta did deliver about 30 minutes after the baby was born. PROCEDURES: With the patient in dorsal lithotomy position and somewhat Melo, she delivered a viable male over intact perineum. Baby had strong instantaneous cry and he was dried and stimulated and bulb suction performed. He was then placed up on his mother's abdomen and then started some breath holding spells but maintained adequate heart rate. Three-vessel umbilical cord was doubly clamped and cut and baby taken over to the warmer by about 30 seconds of age at which time he was responding well to drying, stimulating, and further bulb suctioning and doing quite well. Attention returned to the mother and cord blood sample was obtained and then attempted to deliver the placenta and it was not forthcoming. Therefore, labia and vagina inspected. There was a third-degree laceration which was anesthetized with 1% lidocaine without epinephrine and repaired with 3-0 Vicryl in the usual fashion with good reapproximation and hemostasis. A couple more attempts during the repair were attempted to deliver the placenta and it did not easily come. After the perineal repair was completed, the patient was complaining of increased uterine cramping, pain and with her baseline anxiety, we felt that she was having early symptoms of vasovagal reaction due to the adrenaline from her delivery as well as discomfort from the uterine cramping; however, her lips became pale and her eyes rolled back in her head, and it was clear that she was going into shock. We called for an emergency staff response anticipating the need to start [place] resuscitative measures. Placenta was then quickly delivered by cord traction and concomitant uterine massage. With the placenta, there was approximately 1500 mL of clot and blood expressed simultaneously. A quick manual exploration was performed and placenta was felt in the vagina inverted; therefore, with assisted hand I was able to manually replace the uterus back into its appropriate position. One of the nurses did need to help from the external abdomen to apply force downward on the uterine fold to help it flip back into place, after which time the uterus palpated and no remaining tissue was appreciated. With continued bimanual massage, bleeding was readily controlled. After a couple of minutes, she did start bleeding a little bit more. So, uterus was manually explored with return of small amount of additional clot and then started to clamp down much better. During this time, we had run the Pitocin at 999. She was given a dose of IM Methergine and Cytotec was called for to be placed rectally to help ensure adequate uterine tone. Bleeding at this point was controlled. We continued to watch her for several minutes to make sure that it did not take up again. Vagina and cervix were inspected, and intact. Third-degree laceration repair site remained hemostatic and patient was currently awake and we are running a bolus of IV fluids to help with resuscitation and 2 units of packed red blood cells were ordered from the laboratory as well. The patient was recuperating well and blood loss was controlled with just a normal amount of trickling noted at that time. FINDINGS: Placenta inspected and found to have a circumferential circumvallate placenta with membrane shelf which occurs only in 1% to 7% of pregnancies frequently associated with multiples or some sort of uterine infection earlier in the or when the placenta is trying to grow too large and becomes overly adherent to the uterus. There was also a large area of calcification on the placenta adjacent to the umbilical cord which very well could represent a vanishing twin, and this could also be the source of circumvallate shelf that was seen and could have contributed to the uterine inversion with a large amount of bleeding and clot that presented with delivery of the placenta. It is hard to say if she was already inverted while we were awaiting for the placenta or if the uterus was iatrogenically inverted with rapid delivery of the placenta in anticipation of starting resuscitative measures for the mother. Baby is a viable male, score of 8 and 9. Initial set of weight and length measurements is currently pending. DISPOSITION: Mother and baby to stay in the room at this time. Blood transfusion has been ordered and I anticipate she will be feeling much better soon. She did also receive a liter of IV fluids during our resuscitative efforts. At no time did she lose control of her airway, undergo cardiac or respiratory arrest. She did have syncope, however. See nurse's notes for additional comments. COMPLICATIONS: hemorrhage with uterine inversion causing hypovolemic shock. [facility] [place] /[id number]
[2021-08-13] MEDS: Lactated Ringers 1,000 ML IV SCH (04:55)
[2021-08-13] MEDS: Prenatal Multivitamin with Calcium/Folic Acid/Iron Tab PO SCH (09:21)
[2021-08-13] MEDS: Ibuprofen 800 MG Tab PO PRN ×2 (09:21→18:35)
[2021-08-13] MEDS: Docusate Sodium 100 MG Cap PO PRN ×2 (09:21→21:00)
[2021-08-13] MEDS ORDERED: ceFAZolin 1 GM in Sodium Chloride 0.9% 50 ML IV SCH (10:00)
[2021-08-13] MEDS: ceFAZolin 1 GM in Sodium Chloride 0.9% 50 ML IV SCH ×2 (10:20→18:10)
[2021-08-13] MEDS: Sodium Chloride 0.9% 10 ML Syringe FLUSH PRN ×2 (10:25→18:48)
--- NOTE | 2021-08-13 16:59 | PN ---
DATE: 08/13/2021 TIME SEEN: Approximately 8 a.m. SUBJECTIVE: Post vaginal delivery, day #1, 25-year-old, 3, now para 2-0- 1-2, delivered at 9:20 last night via spontaneous vaginal delivery with third- degree laceration repair, complicated by hemorrhage estimated at 2000 to 2500 mL with uterine inversion, successfully repositioned manually. She also had hypovolemic shock at the time of delivery and resuscitated well with bolus fluid, supportive measure, hemostasis, and overnight has received 2 units of packed red blood cells. Nurses reports that the patient has been doing well. She is voiding. She denies any chest pain, shortness of breath. Has not really been up and ambulate very much at this point but feels significantly better than she did last night. She is attempting breast-feeding with her baby. She actually is very tired as would be expected. Reports that the vaginal bleeding is good at this time and less than that of a normal, and she is looking forward to an uncomplicated recovery . Her understands the event of last night and the patient has an understanding as well. However, I do plan on talking to her more about it after she had some additional rest. OBJECTIVE: Vital Signs: Heart: Regular without murmur. Lungs: Clear to auscultation bilaterally. Abdomen: Soft, nontender. Fundus is firm, well below the umbilicus, normal position. Extremities: No edema, erythema, or tenderness noted. Skin: Back to normal color. Good pink tone in her legs. Neurologic: Appropriate. Good fund of knowledge and understanding of the events on delivery, articulating and comprehending things well at this time. Psychiatric: Feeling some degree of surprise and shock about the complications associated with delivery. Anxiety is at baseline. No new depression or other concerning symptoms. LABORATORY DATA: CBC per this morning is currently pending. Blood transfusions were not completed until the middle of night and I postponed the CBC until 6 hours after second transfusion. ASSESSMENT: 1. Postvaginal delivery day #1. 2. Status post hemorrhage with hypovolemic shock. Patient now stabilized. 3. Status post manual reposition of inverted uterus. 4. Status post third-degree laceration repair. 5. Status post transfusion of 2 units of packed red blood cells. 6. History of hemorrhage due to cervical laceration with first delivery. 7. Anxiety. 8. Irritable bowel syndrome. 9. History of preeclampsia in first . 10.History of Raynaud's. 11.Delivery of macrosomic male infant weighing 9 pounds, 4090 g. 12.Circumvallate placenta with calcification consistent with likely having had a vanishing twin. PLAN: Continue care for vaginal delivery at this time. We will assess what her hemoglobin is and see how she does clinically to see if repeat blood transfusion is necessary. Anticipate another CBC in the morning and discharge home tomorrow as long as all things continue to go well. She is receiving Ancef as antibiotic prophylaxis given the circumvallate placenta as well as the need for manual repositioning of the uterus. Her questions have been answered at this time, and we will continue to follow closely if any issue should arise. [facility] /[id number]
[2021-08-13] MEDS: Ferrous Sulfate 325 MG Tab PO SCH (18:35)
[2021-08-13] MEDS ORDERED: Witch Hazel Medicated Pads 100/Jar TOP PRN (19:08)
[2021-08-14] MEDS: ceFAZolin 1 GM in Sodium Chloride 0.9% 50 ML IV SCH ×3 (02:22→18:29)
[2021-08-14] MEDS: Ibuprofen 800 MG Tab PO PRN ×3 (02:23→17:20)
[2021-08-14] MEDS: Prenatal Multivitamin with Calcium/Folic Acid/Iron Tab PO SCH (09:03)
[2021-08-14] MEDS: Docusate Sodium 100 MG Cap PO PRN (09:03)
[2021-08-14] MEDS: Ferrous Sulfate 325 MG Tab PO SCH ×2 (09:03→18:29)
== END 2021-08-14 17:30 | disposition home or self-care (01) | DRG 768 ==
LOC: DL.OBCHECK 08:05 → DL.OB 08:12 → INTOOBSV 09:52 → OBSVTOIN 09:52 → DL.OB 09:53 → OBSVTOIN 21:19
PROVIDERS: ADMIT Family Medicine; ATTEND Family Medicine
PROC: 10E0XZZ Delivery of Products of Conception, External Approach (ICD-10-PCS; principal; 2021-08-12)
PROC: 0DQR0ZZ Repair Anal Sphincter, Open Approach (ICD-10-PCS; 2021-08-12)
PROC: 00HU33Z Insertion of Infusion Device into Spinal Canal, Percutaneous Approach (ICD-10-PCS; 2021-08-12)
PROC: 3E0R3BZ Introduction of Anesthetic Agent into Spinal Canal, Percutaneous Approach (ICD-10-PCS; 2021-08-12)
DX: O99.344 Other mental disorders complicating childbirth (principal); Z37.0 Single live birth; O70.20 Third degree perineal laceration during delivery, unspecified; O72.1 Other immediate postpartum hemorrhage; Z3A.39 39 weeks gestation of pregnancy; Z20.822 Contact with and (suspected) exposure to COVID-19
CPT/HCPCS: 01967; 36415; 36430; 51701; 59409; 85025; 85027; 86850; 86900; 86901; 86920; 86922; A9270-GY; J0171; J0690; J2210; J2405; J2590; J3010; J7120; P9016; U0002

== ENCOUNTER 2021-08-22 14:44 | Observation (INO) | payer SELFPAY ==
[2021-08-22] MEDS ORDERED: Sodium Chloride 0.9% 1,000 ML IV ONE (14:59)
[2021-08-22] MEDS ORDERED: Clindamycin Phosphate 900 MG in Sodium Chloride 0.9% 100 ML IV ONE (15:01)
[2021-08-22] MEDS ORDERED: Morphine 2 MG/ML SYRINGE IVPUSH ONE (15:05)
[2021-08-22] MEDS ORDERED: Morphine 2 MG/ML SYRINGE ONE (15:06)
[2021-08-22] MEDS ORDERED: Oxytocin/Normal Saline 30 UNIT/500 ML BAG IV SCH (15:15)
--- NOTE | 2021-08-22 15:21 | EDM.PDOC ---
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 Patient states she has had fever up to 101 and chills. Patient is , vaginally delivered on 08/12/2021. Has been nursing, states she has had mastitis which she thought was resolving. She states yesterday she began with body aches and generalized flu symptoms. Patient states she did have a large gush of blood as well as foul-smelling vaginal discharge prior to arrival to the ER. Onset: Today - Related Data Allergies Allergy/AdvReac Type Severity Reaction Status Date / Time No Known Allergies Allergy Verified 08/08/21 05:00 Home Meds: Home Meds Pnv No.95/Ferrous Fum/Folic AC [ Vitamins Tablet] 1 tab PO DAILY 10/30/19 [History] Acetaminophen [Tylenol] 650 mg PO Q4H PRN tablet 11/02/19 [Rx] Docusate Sodium [Colace] 100 mg PO BID PRN cap 11/02/19 [Rx] Ferrous Sulfate 325 mg PO BID tablet 11/02/19 [Rx] Acetaminophen [Tylenol] 650 mg PO Q4H PRN tablet 08/13/21 [Rx] Ibuprofen [Motrin] 800 mg PO Q8H PRN tablet 08/13/21 [Rx] Past Medical History - Past Health History Medical/Surgical History: Denies Medical/Surgical History HEENT History: Reports: None Cardiovascular History: Reports: None, Other (See Below) Other Cardiovascular History: Primary Raynauds Respiratory History: Reports: None Gastrointestinal History: Reports: Irritable Bowel Syndrome Genitourinary History: Reports: None 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: Musculoskeletal History: Reports: None Neurological History: Reports: None Psychiatric History: Reports: Anxiety Endocrine/Metabolic History: Reports: None Hematologic History: Reports: None Immunologic History: Reports: None Oncologic (Cancer) History: Reports: None Dermatologic History: Reports: None - Infectious Disease History Infectious Disease History: Reports: Chicken Pox - Past Surgical History Head Surgeries/Procedures: Reports: None Female Surgical History: Reports: None Neurological Surgical History: Reports: None Dermatological Surgical History: Reports: None Social & Family History - Family History Family Medical History: No Pertinent Family History - Caffeine Use Caffeine Use: Reports: None ED ROS GENERAL - Review of Systems Review Of Systems: Comprehensive ROS is negative, except as noted in HPI. ED EXAM, GENERAL - Physical Exam Exam: See Below Exam Limited By: No Limitations General Appearance: Alert, WD/WN, Mild Distress Eye Exam: Bilateral Eye: EOMI, Normal Inspection Ears: Normal External Exam, Hearing Grossly Normal Nose: Normal Inspection Throat/Mouth: Normal Inspection, Normal Voice, No Airway Compromise Head: Atraumatic, Normocephalic Neck: Normal Inspection, Supple, Non-Tender, Full Range of Motion Respiratory/Chest: No Respiratory Distress, Lungs Clear, Normal Breath Sounds, No Accessory Muscle Use, Chest Non-Tender Cardiovascular: Normal Peripheral Pulses, Regular Rate, Rhythm, No Edema, No Gallop, No JVD, No Murmur, No Rub Peripheral Pulses: 2+: Radial (L), Radial (R) GI/Abdominal: Normal Bowel Sounds, Soft, Non-Tender (Female) Exam: Vaginal Bleeding, Vaginal Discharge Rectal (Female) Exam: Deferred Back Exam: Normal Inspection, Full Range of Motion Extremities: Normal Inspection, Normal Range of Motion, Non-Tender, Normal Capillary Refill, No Pedal Edema Neurological: Alert, Oriented, CN II-XII Intact, Normal Cognition, Normal Gait, Normal Reflexes, No Motor/Sensory Deficits Psychiatric: Normal Affect, Normal Mood Skin Exam: Warm, Dry, Intact, Normal Color, No Rash Lymphatic: No Adenopathy Course - Vital Signs Last Recorded V/S: Last Vital Signs Temp 98.9 F 08/22/21 14:42 Pulse 80 08/22/21 14:42 Resp 20 08/22/21 14:42 BP 137/89 08/22/21 14:42 Pulse Ox 100 08/22/21 14:42 - Orders/Labs/Meds Orders: Active Orders 24 hr Category Date Time Status Admission Diagnosis [ADT] Stat ADT 08/22/21 15:32 Ordered Admission Status [Patient Status] [ADT] Routine ADT 08/22/21 15:32 Active Patient Status Manage Transfer [TRANSFER] Routine ADT 08/22/21 15:59 Active Pelvis Non OB Comp [US] Urgent Exams 08/22/21 14:46 Ordered CORONAVIRUS COVID-19 RAPID [MOLEC] Stat Lab 08/22/21 15:58 Received CULTURE BLOOD [BC] Stat Lab 08/22/21 15:07 Received CULTURE BLOOD [BC] Stat Lab 08/22/21 15:24 Received CULTURE GENITAL [RM] Routine Lab 08/22/21 14:53 Received TYPE AND SCREEN [BBK] Stat Lab 08/22/21 15:07 Received Oxytocin/Normal Saline [Pitocin in NS 30 UNIT/500 ML] Med 08/22/21 15:15 Active 30 unit in 500 ml IV TITRATE Blood Culture x2 Reflex Set [OM.PC] Stat Oth 08/22/21 15:08 Ordered Medication Orders Oxytocin/Sodium Chloride (Pitocin In Ns 30 Unit/500 Ml) 30 unit in 500 mls @ 500 mls/hr IV TITRATE KENISHA; Protocol Last Admin: 08/22/21 15:52 Dose: 500 mls/hr Documented by: NASIR Labs: Laboratory Tests 08/22/21 08/22/21 08/22/21 Range/Units 15:07 15:07 15:07 WBC 15.9 H (5.0-10.0) 10^3/uL RBC 3.66 L (4.2-5.4) 10^6/uL Hgb 11.3 L D (12.0-16.0) g/dL Hct 34.7 L (37.0-47.0) % MCV 94.8 D (80-100) fL MCH 30.9 (27.0-34.0) pg MCHC 32.6 L (33.0-35.0) g/dL Plt Count 441 D (150-450) 10^3/uL Neut % (Auto) 83.5 H (42.2-75.2) % Lymph % (Auto) 9.2 L (20.5-50.1) % [place] % (Auto) 6.5 (2-8) % Eos % (Auto) 0.6 L (1.0-3.0) % Baso % (Auto) 0.2 (0.0-1.0) % Add Manual Diff Yes Neutrophils % (Manual) 75 (42-75) % Band Neutrophils % 10 % Lymphocytes % (Manual) 10 L (20-50) % Monocytes % (Manual) 5 (2-8) % Sodium 141 (136-145) mmol/L Potassium 3.8 (3.5-5.1) mmol/L Chloride 103 (98-107) mmol/L Carbon Dioxide 23 (21-32) mmol/L Anion Gap 18.8 H (7-13) mEq/L BUN 16 (7-18) mg/dL Creatinine 0.75 (0.55-1.02) mg/dL Est Cr Clr Drug Dosing TNP Estimated GFR (MDRD) > 60 BUN/Creatinine Ratio 21.3 (No establ ref range) Glucose 92 (70-99) mg/dL Lactic Acid 0.9 (0.4-2.0) mmol/L Calcium 9.2 (8.5-10.1) mg/dL Total Bilirubin 0.6 (0.2-1.0) mg/dL AST 19 (15-37) U/L ALT 32 (14-59) U/L Alkaline Phosphatase 145 H (46-116) U/L Total Protein 7.5 (6.4-8.2) g/dL Albumin 3.3 L (3.4-5.0) g/dL Globulin 4.2 Albumin/Globulin Ratio 0.79 Meds: Medications Generic Name Dose Route Start Last Admin Trade Name Freq PRN Reason Stop Dose Admin Oxytocin/Sodium Chloride 30 unit in 500 mls @ 500 mls/hr 08/22/21 15:15 08/22/21 15:52 Pitocin In Ns 30 Unit/500 Ml IV 500 mls/hr TITRATE KENISHA Administration Protocol Discontinued Medications Generic Name Dose Route Start Last Admin Trade Name Freq PRN Reason Stop Dose Admin Sodium Chloride 1,000 mls @ 999 mls/hr 08/22/21 14:59 08/22/21 15:33 Normal Saline IV 08/22/21 15:59 999 mls/hr .BOLUS ONE Administration Clindamycin Phosphate 900 mg/ 106 mls @ 200 mls/hr 08/22/21 15:01 08/22/21 15:38 Sodium Chloride IV 08/22/21 15:32 200 mls/hr ONETIME ONE Administration Gentamicin Sulfate 340 mg/ 108.5 mls @ 200 mls/hr 08/22/21 15:09 Sodium Chloride IV 08/22/21 15:41 ONETIME ONE Morphine Sulfate 2 mg 08/22/21 15:05 08/22/21 15:10 Morphine 2 Mg/Ml Syringe IVPUSH 08/22/21 15:06 2 mg ONETIME ONE Administration Morphine Sulfate Confirm 08/22/21 15:06 08/22/21 15:36 Morphine 2 Mg/Ml Syringe Administered 08/22/21 15:07 Not Given Dose 2 mg .ROUTE .STK-MED ONE - Re-Assessments/Exams Free Text/Narrative Re-Assessment/Exam: 08/22/21 15:21 Dr. sEpinoza consulted to the ER. Departure - Departure Time of Disposition: 16:01 Disposition: Refer to Observation Condition: Fair Clinical Impression: endometritis, fever - Discharge Information *PRESCRIPTION DRUG MONITORING PROGRAM REVIEWED*: No *COPY OF PRESCRIPTION DRUG MONITORING REPORT IN PATIENT DIAMOND: No Forms: ED Department Discharge Sepsis Event Note (ED) - Focused Exam Vital Signs: Vital Signs Temp Pulse Resp BP Pulse Ox 08/22/21 14:42 98.9 F 80 20 137/89 100 - My Orders Last 24 Hours: My Active Orders 08/22/21 14:53 CULTURE GENITAL [RM] Routine 08/22/21 15:07 CULTURE BLOOD [BC] Stat TYPE AND SCREEN [BBK] Stat 08/22/21 15:08 Blood Culture x2 Reflex Set [OM.PC] Stat 08/22/21 15:15 Oxytocin/Normal Saline [Pitocin in NS 30 UNIT/500 ML] 30 unit in 500 ml IV TITRATE 08/22/21 15:24 CULTURE BLOOD [BC] Stat 08/22/21 15:32 Admission Diagnosis [ADT] Stat Admission Status [Patient Status] [ADT] Routine 08/22/21 15:58 CORONAVIRUS COVID-19 RAPID [MOLEC] Stat - Assessment/Plan Last 24 Hours: My Active Orders 08/22/21 14:53 CULTURE GENITAL [RM] Routine 08/22/21 15:07 CULTURE BLOOD [BC] Stat TYPE AND SCREEN [BBK] Stat 08/22/21 15:08 Blood Culture x2 Reflex Set [OM.PC] Stat 08/22/21 15:15 Oxytocin/Normal Saline [Pitocin in NS 30 UNIT/500 ML] 30 unit in 500 ml IV TITRATE 08/22/21 15:24 CULTURE BLOOD [BC] Stat 08/22/21 15:32 Admission Diagnosis [ADT] Stat Admission Status [Patient Status] [ADT] Routine 08/22/21 15:58 CORONAVIRUS COVID-19 RAPID [MOLEC] Stat
[2021-08-22 15:49] LABS: ANION GAP 18.8 mEq/L (7-13); CHLORIDE,CL 103 mmol/L (98-107); SODIUM,NA 141 mmol/L (136-145)
[2021-08-22] MEDS ORDERED: Acetaminophen 325 MG Tab PO PRN (16:00)
[2021-08-22] MEDS ORDERED: Oxytocin/Normal Saline 30 UNIT/500 ML BAG IV ONE (16:00)
[2021-08-22] MEDS ORDERED: Ibuprofen 800 MG Tab PO PRN (16:00)
[2021-08-22] MEDS ORDERED: Docusate Sodium 100 MG Cap PO PRN (16:00)
[2021-08-22] MEDS ORDERED: Clindamycin Phosphate 600 MG/4 ML SDV ONE (16:12)
[2021-08-22] MEDS ORDERED: Gentamicin 40 MG/ML 2 ML Vial ONE (16:15)
[2021-08-22] MEDS ORDERED: Metoclopramide 10 MG/2 ML SDV IVPUSH PRN (16:26)
--- NOTE | 2021-08-22 16:42 | US ---
PROCEDURE INFORMATION: Exam: US Nonobstetric Pelvis; Complete Exam date and time: 08/22/2021 3:02 PM Age: 25 years old Clinical indication: Other: Post pardom vaginal bleeding; Vaginal pain and other: Bleeding; Patient HX: Post par vaginal bleeding; Additional info: Retained products od conception TECHNIQUE: Imaging protocol: Transabdominal pelvic nonobstetric ultrasound. Complete exam. Real time ultrasound with image documentation. COMPARISON: No relevant prior studies available. FINDINGS: Two grayscale images of the uterus. The patient is reported be recently. The study is nondiagnostic in was used for guidance. Please see sonography notes for additional details. IMPRESSION: Sonography provided for guidance
--- NOTE | 2021-08-22 18:10 | OR ---
DATE: 08/22/2021 PREOPERATIVE DIAGNOSIS: Retained products of conception. POSTOPERATIVE DIAGNOSES: Retained products of conception, delayed endometritis. CONSENT: The patient was brought into the emergency department via ambulance due to increase in vaginal bleeding, fever, and some foul-smelling vaginal discharge. Discussed with her that she likely had some retained products of conception causing infection in the uterus. Therefore, D and C could be attempted in the emergency room. However, if she was having too much pain or there was too much tissue present, we would need to transition over to the operating room. Performing this procedure immediately at that time was to help decrease any further bleeding and to gain better control of the situation. Bedside ultrasound was also going to be available to help ensure the decreased risk of uterine perforation, injury to adjacent organs and structures. The patient understood risk of uterine scarring, spreading of the infection, and uterine perforation, and was willing to proceed. PROCEDURE IN DETAIL: With the patient in dorsal lithotomy position, speculum was placed in the vagina and I could see her cervix. With a ring forceps, I teased out repetitive amounts of purulent drainage, a couple of small blood clots measuring less than 2 cm, amniotic membranes which grand total would be about 10 cm2. No large placental fragments were found and much more purulent drainage was found than anticipated and really not that much serosanguineous blood. Total amount of fluid and clots and tissue expressed probably about 100 mL. Bedside ultrasound confirmed that the uterus itself was anteverted, but did not have any retained products there. Everything that was removed was just from the lower uterine segment and the rest of the uterus appeared empty. At no time were there any signs of perforation or malplacement of my instruments. FINDINGS: Purulent fluid with serosanguineous blood, organized clot, and retained amniotic fluid sac tissue. DISPOSITION: The patient to be admitted to the hospital for continued monitoring and IV fluid administration, IV antibiotics, and IV Pitocin. Her questions were answered. We will be anticipating a 24- hour admission, possibly longer if things do not improve. HOSPITAL INSURANCE REPRESENTATIVE was also consulted after the procedure was completed and agreed with treatment plan. [facility] /[id number] [facility]ITALCandy
[2021-08-22] MEDS: Clindamycin Phosphate 900 MG in Sodium Chloride 0.9% 100 ML IV SCH (23:31)
[2021-08-23] MEDS ORDERED: Oxytocin/Normal Saline 30 UNIT/500 ML BAG ONE (06:23)
[2021-08-23] MEDS ORDERED: Methylergonovine 0.2 MG Tab PO PRN (06:31)
[2021-08-23] MEDS ORDERED: Oxytocin 10 Units/1 ML SDV IM PRN (06:31)
[2021-08-23] MEDS ORDERED: Tranexamic Acid 1,000 MG in Sodium Chloride 0.9% 100 ML IV PRN (06:31)
[2021-08-23] MEDS ORDERED: Citric Acid/Sodium Citrate Solution 30 ML Cup PO ONE (06:31)
[2021-08-23] MEDS ORDERED: Propofol 1,000 MG/100 ML SDV IV ONE (07:00)
[2021-08-23] MEDS ORDERED: Dexamethasone 4 MG/ML SDV IV ONE (07:00)
[2021-08-23] MEDS ORDERED: Lactated Ringers 1,000 ML IV ONE (07:00)
[2021-08-23] MEDS ORDERED: Midazolam 1 MG/ML 2 ML SDV IV ONE (07:00)
[2021-08-23] MEDS ORDERED: Lidocaine 1% 30 ML SDV INJECT ONE (07:00)
[2021-08-23] MEDS ORDERED: fentaNYL 100 MCG/2 ML SDV IV ONE (07:00)
--- NOTE | 2021-08-23 07:28 | HP ---
CHIEF COMPLAINT: Vaginal bleeding and foul-smelling drainage. HISTORY OF PRESENT ILLNESS: The patient is a 25-year-old, 3, now para 2- 0-0-2, 10 days post spontaneous vaginal delivery complicated by uterine inversion and hemorrhage of 2500 mL with having received 2 units of packed red blood cells. She did also receive antibiotics for 24 hours and then was doing well and asymptomatic for infection and severe anemia. Discharged home on day 2 and had been doing well. Yesterday, she was in the office with her for his circumcision, and at that time, reporting some left-sided breast tenderness and pain and not felt to be endometritis and was afebrile, but given a handwritten prescription for doxycycline to be filled if needed after contacting me over the weekend if she had any problems. She reports that the breast pain resolved and she still had not had any fevers at that time and things have been going well, but then today noticed that she was having some body aches, some tenderness down in the pelvic area, not necessarily uterine, but she reports feeling more like intestinal type of tenderness and a fever of 101. However, she is also not certain if her home thermometer was reading accurately. She noticed initially some bleeding that was not severe, that there was some drainage, but it was not very foul-smelling, so she had called Labor and Delivery nurses and talked about her symptoms and things seemed like they could be monitored at home. After being up and around more, she actually had a larger gush of fluid and foul-smelling drainage. There was concern for a potential significant hemorrhage and family was already feeling strained because the baby had some bleeding from his circumcision sites they had to deal with, so they called the ambulance for her to bring her to the hospital for further evaluation and her followed by private vehicle with the and her daughter. Ambulance reported that her vital signs remained stable and she has remained calm throughout the transfer. She reports still feeling gushing every time that she moves or there is any sort of pressure down in the pelvic area and that the drainage has been more of a watery bloody type and a little bit of cloudiness to it, but that there have not been marisela dark red blood clots. No lightheadedness. No chest pain or shortness of breath. Voiding and stooling have been normal. Otherwise, typical state and re-endorses that she does not feel any symptoms of mastitis. PAST MEDICAL HISTORY: Anxiety, irritable bowel syndrome, miscarriage, primary Raynaud's phenomenon, uterine shape and position abnormality in , history of cervical laceration, history of uterine inversion, history of blood transfusion, history of hemorrhage with 2 separate deliveries. PAST SURGICAL HISTORY: None. She did however require the cervical laceration to be sutured and manual repositioning of the uterus with her first and second deliveries respectively. FAMILY HISTORY: Mother alive and well. Father alive with anxiety, prediabetes, and an arrhythmia that required ablation. Sister with an arrhythmia. Brother alive and well. Maternal grandmother alive and well. Maternal grandfather, stroke in his 60s and heart disease. Paternal grandmother , had diabetes. Paternal grandfather , had parkinsonism at age 55, but lived into his 80s and he had a pacemaker. There is a paternal aunt with seizures and paternal great grandmother and had a history of multiple births. Otherwise, family history is pretty unremarkable. There is report that her mother had a uterine inversion with 1 of her deliveries. SOCIAL HISTORY: The patient is to her , Marito on September 11, 2015, and they moved to the local area from [place], [place], and Marito is a gaitan and used to work as a diesel fitter mechanic. Margot stays home with her children to raise them and they have family support within the state, but about an hour and a half drive to get here. OBSTETRICAL HISTORY: 12/20/2018, miscarriage 4 weeks 6 days, spontaneously resolved. 11/01/2019, 40 weeks 3 days gestation, vaginal delivery, female infant complicated by cervical laceration and 1500 to 2000 mL of blood loss. Then, 08/12/2021, 39 weeks 3 days' gestation vaginal delivery, 9-pound male infant complicated by uterine inversion and hypovolemic shock, transfused with 2 units due to hemorrhage. REVIEW OF SYSTEMS: Pertinent positives and negatives are listed above in the history of present illness. No headaches, blurry vision, chest pain, shortness of breath. No recent change in her typical gastrointestinal symptoms. Voiding, stooling without complications. No skin rash. Denies high fever or specific uterine tenderness. OBJECTIVE: General: A pleasant, 25-year-old female, initially quite surprised by her signs and symptoms, but hemodynamically appearing stable. Vital Signs: Temperature 98.9, pulse 80, blood pressure 137/89, respiratory rate of 20, O2 saturations 100% on room air. HEENT: Grossly unremarkable. Heart: Regular without murmur. Lungs: Clear to auscultation bilaterally. Abdomen: , positive bowel sounds in all 4 quadrants. Tender down in the lower portion that she feels more is gastrointestinal type of tenderness and actual uterine tenderness. Genitourinary: Vulva, normal-appearing vaginal introitus with laceration site repair intact. Speculum exam shows the cervix to be open with small amount of serosanguineous blood present. With passing of ring forceps and a blunt curette tool, I was able to remove approximately 100 mL of purulent bloody fluid with what I would estimate would stretch out to be about a 10 cm segment of amniotic membrane and a couple of small clots less than 2 cm each. Bedside ultrasound confirmed that all of this tissue was removed well from the lower uterine segment. Uterus is quite anteverted and the main cavity of the uterus did not have any significant retained products, and uterus evacuated well with bedside D and C that I performed in the emergency department. Extremities: No edema, erythema, or tenderness noted. Toes are cold and red consistent with her primary Raynaud's. Neurologic: The patient is appropriate, answering questions well. No signs of neurological compromise. Assessment-. LABORATORY DATA: White blood cell count of 15.9. This is actually down from the 17.4 that she had upon discharge from the hospital. Hemoglobin was up to 11.3, upon discharge it was 9.0. Neutrophils, however, are up to 83.5%. Chemistry panel remarkable for anion gap of 18.8, albumin of 3.3, alkaline phosphatase is elevated at 145, however, this is consistent with recent delivery. Other electrolytes are within normal limits. Lactic acid is 0.9, within normal limits. COVID test is negative. Blood cultures are pending. DIAGNOSES: 1. Delayed endometritis. 2. Retained amniotic fluid and sac membrane. 3. mother. 4. Status post complicated vaginal delivery with history of uterine inversion and hemorrhage requiring blood transfusion. 5. mother. PLAN: The patient has received gentamicin 340 mg, this will be dosed every 24 hours. Clindamycin 900 mg first dose has been given and we will repeat that every 8 hours for treatment of her infection. Anticipate inpatient hospitalization for 24 hours to make sure things are improving. After that, she can be discharged home on Augmentin for a 7-day complete course. Baby will be with her here in the hospital, so that she can continue , will be cautious to use only medications that are safe for . I am going to run a dose of IV Pitocin to help with the uterus cramping down and to expel any remaining contents of the uterus that may be present. Prognosis is good that the patient will fare well given that this infection is being caught relatively early since its onset. I also did call and discuss the case with Dr. Sonny Funes, PROFESSOR OF RHETORIC and he was in agreement with my plan, and I would reach out to him again if I have any concerns or problems that may arise. The baby will be here and we may need to try to make special exceptions for her to be able to be here as well to help with the baby, but with the COVID visitor policy rules, we will have to see how that can be worked out. He may also need to stay home with their older child. Questions answered. [facility] /[id number]
--- NOTE | 2021-08-23 07:30 | PN ---
DATE: 08/23/2021 SUBJECTIVE: Nurse called me this morning somewhere around 5 o'clock because the patient had increase in vaginal bleeding, not having much more in the way of cramping or uterine tenderness. Initially reported that she had a small spot of bright red blood and they changed her pad and that seemed to be fine and then she saturated about 3/4 of a peach-colored pad which is large but not extra- large size pad. After that, nurse gave some fundal massage and she passed a fist-sized clot and they changed her pad again, and now that I have come in the next pad is about half saturated. The patient feels that she is having some uterine cramping, not as much as she had before with it being immediately , but she continues to feel some blood trickling down. OBJECTIVE: Vital Signs: Temperature 99.2, pulse 86, blood pressure 110/59, respiratory rate of 16, O2 saturations 99% on room air. Heart: Regular without murmur. Lungs: Clear bilaterally. Abdomen: Soft. No diffuse tenderness. Extremities: No edema, erythema or tenderness noted. Neurologic: Appropriate. Psychiatric: Nervous and scared, but maintaining her composure well. had called while I was in the room and that was reassuring for her. I called in the central service tech for a bedside ultrasound and there is now an organized and fresh-appearing clot in the uterus by bedside ultrasound. Largest diameter looks about 3 cm. Although he did not take full set of measurements, he did have a few. An official report is not yet available. The patient continues to feel like she has some blood and trickling present. ASSESSMENT: 1. Delayed hemorrhage. 2. Delayed endometritis. 3. day #11, complicated vaginal delivery due to uterine inversion and hemorrhage with hypovolemic shock requiring blood transfusion. PLAN: Patient will be taken to the operating room for suction, dilatation and curettage under ultrasound guidance. Discussed that although the ultrasound in the emergency department earlier today looked clear, she now has organized clot and possible small fragments of sac present and so forth, so we will get that curetted out and hopefully get this bleeding under good control. Discussed with her indications risks, benefits, and alternatives of suction D and C. Consent forms were signed and are in the chart. We also consented her for blood transfusion in case that becomes necessary. [facility] /[id number]
[2021-08-23] MEDS: Misoprostol 400 MCG (4 X 100 MCG TAB) RECTAL ONE ×2 (07:47→11:22)
--- NOTE | 2021-08-23 10:06 | OR ---
DATE: 08/23/2021 PROCEDURE PERFORMED: Suction dilatation and curettage. ANESTHESIA: MAC. PREPROCEDURE DIAGNOSES: Delayed hemorrhage due to delayed endometritis. CONSENT: Discussed with the patient and her indications, risks, benefits, and alternatives of proceeding to the operating room for ultrasound- guided suction dilatation and curettage to evacuate the uterus of any retaining clots, placental fragments, and trailing membranes that maybe contributing to her endometritis; risk of injury to any internal organs and adjacent structures if there is uterine perforation including but not limited to bowel, bladder, fallopian tubes, ovaries, vagina, or urethra; and potential for worsening of infection, potential for increased blood loss, and requirement of blood transfusion. Her questions were answered, and consent forms were signed. BRIEF HISTORY: A 25-year-old female, 11 days , and had presented to the emergency department yesterday with fever of 101, foul-smelling vaginal discharge, and increase in vaginal bleeding with minimal uterine cramping. In the Emergency Department, curetting was performed of the lower uterine segment and vagina with return of some trailing membranes and purulent fluid and clots. Ultrasound at that time, the uterus appeared empty, and it was felt that she just needed to be admitted for some overnight antibiotics and to make sure that things were going well. Overnight, she initially did well until around 4 to 5 o'clock in the morning, she started having increased vaginal bleeding and was saturating pads. The nurse called me in for re-evaluation, and she was indeed having significant increased blood loss. Ultrasound was performed and showed at least a 3 x 2 cm area of likely organized clot in the uterus and massage would cause recurrent bleeding, so we determined we did need to take her for D and C to evacuate the uterus. DETAILS: The patient brought to the operating room and anesthesia obtained. She was placed in dorsal lithotomy position, and vagina prepped. Straight catheter performed for 700 mL of clear urine. Sterile drapes applied and speculum placed, and large clots were removed from the vagina. Allis clamp was used to grasp the anterior cervical lip while a size 10 curved suction catheter was placed into the uterus under ultrasound guidance until it was at the fundus and then suction applied and several passes of the suction catheter were showing excellent result in removal of the tissue and clots. Sharp curetting was also performed alternating with the suction catheter as needed as we were still feeling tissue and membranes on the anterior and the patient's left side of the uterus, and during all of these passes, I was removing fragments of membranes and one larger piece of well-organized clot approximately 5 x 2.5 cm irregularly shaped. The remainder of the tissue removed were small fragments of dark blood clot and fresher larger clots. Bleeding was quite brisk, and her uterus was not firm. Pitocin was initiated, and 800 mcg of Cytotec placed in the rectum. One more pass of the suction catheter to remove the final clots. Bimanual massage was performed, and then the bleeding was controlled as long as we had repeat massaging of the uterus, and the uterine tone was good after that, so the procedure was ended, and all instruments removed. Sponge and instrument counts were correct. Uterus was now showing no retained tissue at this time. obstetrics technician feels the difference in ultrasound machines used in the OR versus in the ER could account for having missed the fragment of retained tissue in the Emergency Department when we treated her there. ESTIMATED BLOOD LOSS: 1000 mL, possibly even as much as 1500 mL. FLUIDS: Normal saline and IV with Pitocin. OUTPUT: 700 mL clear urine. COMPLICATIONS: None. DISPOSITION: Patient to go to the PACU for initial recovery. We will be keeping a very close eye on her vaginal bleeding and due to the intraoperative blood loss and the starting hemoglobin of only 9.3, 1 unit of blood will also be ordered. [facility] /[id number]
[2021-08-23] MEDS: Clindamycin Phosphate 900 MG in Sodium Chloride 0.9% 100 ML IV SCH ×2 (10:33→18:05)
[2021-08-24] MEDS: Clindamycin Phosphate 900 MG in Sodium Chloride 0.9% 100 ML IV SCH ×2 (02:26→10:16)
--- NOTE | 2021-08-24 09:04 | PN ---
DATE: 08/24/2021 SUBJECTIVE: Hospital day #3 for a 25-year-old patient who presented with vaginal bleeding, found to have a delayed hemorrhage and delayed endometritis. Since being admitted to the hospital, she underwent evacuation of contents of the lower uterine segment in the emergency department, but then yesterday morning around 4 a.m., started having a significant increase in blood loss and was taken to the operating room around 7 o'clock in the morning for suction dilatation curettage for evacuation of retained products of conception, which went well. However, she did have about 1000 to 1500 mL of blood loss accounting for what had occurred in the room as well as what have had occurred at surgery, possibly even more than that. Since that time, the patient and the staff have been on high alert and very concerned about potential for recurrent bleeding. She has had small to moderate amounts of blood consistent with the menstrual period, usually worse when she first stands up to do anything. She has been concerned about getting up and moving around, so nurses have generally been making sure she gets to the bathroom safely. She is not reporting any overt lightheadedness, chest pain, or shortness of breath, more so generalized fatigue, uterine cramping, abdominal wall tenderness, and being concerned about any sorts of bleeding issues. She is voiding without difficulties, stooling normally. still seems to be going well. She is not reporting any fevers, chills, or body aches, and reports she is concerned about making sure the infection is adequately treated. Yet also understands that prolonged use of antibiotics could lead to other complications such as Clostridium difficile colitis. Her has been able to stay with her in the hospital since her D and C as all of this has been very traumatic for her mentally and she needs the extra support at this time plus taking care of a in the room when you are a patient yourself is difficult. OBJECTIVE: Vital Signs: Temperature is 97.8, T-max of 99.2 yesterday morning at 6:30 a.m. Nurse reports 99.6 as her T-max. Pulse rate 74. Blood pressure 111/57 in semi-Johnson, 101/47 sitting. Respiratory rate of 20, O2 saturations 100% on room air. Heart: Regular without any murmur. Lungs: Clear to auscultation bilaterally. Abdomen: Bowel sounds are positive. Fundus is firm and just right in the suprapubic region some abdominal wall tenderness from how many times she has been massaged. Extremities: No edema, erythema, or tenderness noted. Psychiatric: Not tearful this morning, however, she has been tearful off and on in dealing with this overwhelming amount of stress. LABORATORY DATA: White blood cell count trending downward and at 12.2 today. Neutrophils are back in the normal range at 67.3%, manual of 56. Hemoglobin is down to 7.9, and platelets 306. ASSESSMENT: 1. Anemia of blood loss, status post transfusion of 2 units, currently asymptomatic for needing additional blood. 2. Delayed endometritis. 3. Delayed hemorrhage. 4. Status post dilatation and curettage. 5. mother. 6. Anxiety with acute situational stress. PLAN: At this time, continue with the inpatient management and IV antibiotics. I plan to come by around lunch time and check on how her bleeding has been when she has been up and around more today, making sure that she feels more comfortable with going home and can also perform a bedside ultrasound to ensure that it does not look like there is a significant recollection of blood or clots within the uterus. Also, discussed sending her home with 5 to 7 days of p.o. Augmentin to help make sure that the infection is cleared, and weighing that against the risk of Clostridium difficile colitis. Their questions have been answered at this time. [facility] /[id number]
--- NOTE | 2021-08-25 13:37 | DISCH ---
ADMITTING DIAGNOSES: 1. Delayed endometritis. 2. Retained amniotic fluid sac and membrane. 3. mother. 4. Recent complicated vaginal delivery with uterine inversion and hemorrhage requiring blood transfusion. BRIEF HISTORY: A 25-year-old, 3, now para 2-0-1-2, admitted to the hospital at 10 days due to presenting with fever, increased bleeding, and foul-smelling vaginal drainage. In the emergency department, lower uterine segment was cleared of some organized clot and retained trailing membranes and purulent fluid. Ultrasound called to the room and uterus appeared empty at that time, so a D and C of her anteverted uterus was not indicated and she seemed to be doing well and there was no significant bleeding immediately seen. She was admitted to the hospital for IV gentamicin and clindamycin and further monitoring for any complications. Around 4 o'clock in the morning about 12 hours post admission, she went on to have a large amount of heavy vaginal bleeding and was saturating through our larger size pads and ultrasound called in again and found to have a larger volume of retained products, clots, and tissue noted in the uterus at that time. So, around 7 o'clock in the morning, she was taken to the operating room and underwent suction dilation and curettage with larger hemorrhage at that time, approximating about a 1000 mL plus at least 500 preoperatively for an additional 1500 mL of blood loss. With that, we did find some larger organized clot, additional trailing membranes, and brisk bleeding with significant uterine atony. Intraoperatively, she received IV Pitocin running as well as rectal Cytotec and bimanual massage. After verifying that we had good hemostasis and the uterus appeared empty, surgery was completed and she was brought back to her room. After surgery, she was doing well. It took a while to get her confident with being able to ambulate independently and nurses were keeping a very close eye on her bleeding as well as her symptoms of anemia. She was transfused 2 more units of blood during this hospital stay, and by time of discharge, she was ambulating, tolerating regular diet. Pain was well controlled. Uterine tone was good. She was continuing to have smaller bleeding events at any time she would rest for a prolonged period of time and get up and walk around. Otherwise, it was generally more just of spotting. was continuing to go well despite everything that she had been through. She remained afebrile and white blood cell counts were trending downward and things were showing significant improvement. LABORATORY RESULTS: WBCs on admission 15.9, on discharge 12.1, hemoglobin was 11.3, pre D and C was 9.3, post D and C and 2 units of blood was 7.9. Platelets initially started at 441, discharged at 306. Neutrophil percent started off at 83.5 and she was discharged at 67.3. Absolute neutrophil started at 75 and she was discharged at 5.6. Chemistry panel was remarkable for an anion gap of 18.8, albumin of 3.1, otherwise normal. Her lactic acid on admission was 0.9, therefore not repeated. COVID test was negative. Blood cultures so far only coming back as gram-positive cocci in pairs, eventually strep species, identity and sensitivity are not yet resulted. Prior to discharge, she has received 3 doses of IV gentamicin. She is receiving clindamycin every 8 hours and plan was to discharge home on Augmentin. DISCHARGE CONDITION: Good. PHYSICAL EXAMINATION: Vital Signs: Temperature is 98.8, pulse 83, blood pressure 109/65, respiratory rate of 16, and O2 saturations 99% on room air. Heart: Regular without murmur. Lungs: Clear to auscultation bilaterally. Abdomen: Soft, nontender. She has positive bowel sounds throughout. Fundus is only a few fingerbreadths above the pubic symphysis. She has some musculoskeletal tenderness in this region from the repetitive uterine exams, but nothing to suggest operative complication or spreading of infection. Extremities: No edema, erythema, or tenderness noted. Neurologic: Appropriate. She is alert, awake, functioning well. Psychiatric: She demonstrates appropriate insight and judgment. She is scared and nervous about going home and having repetitive bleeding episodes which is certainly understandable given her delivery and this hospitalization history. She is also concerned that the antibiotics will not fully treat the infection. However, also understands that causing C. difficile colitis because of excessive use of antibiotics should be avoided. INSTRUCTIONS: Discussed with her returning to the clinic or hospital if she has any development of fever, increased uterine tenderness, bleeding more than a menstrual cycle or passing clots larger than golf ball size. Also, if she has any symptoms of syncope or presyncope, we would want to be seeing her again. I will see her in the office on Tuesday for recheck to make sure that things are going well. DISCHARGE MEDICATIONS: Iron 325 mg twice daily, Colace 100 mg twice daily as needed for constipation, ibuprofen 800 mg every 8 hours as needed for pain, Tylenol 650 mg as needed for pain, Augmentin 875/125 one tablet every 12 hours for an additional 6 days, vitamin 1 p.o. daily. [facility] /[id number]
--- NOTE | 2021-08-25 23:24 | US ---
PROCEDURE INFORMATION: Exam: US Pelvis, Transabdominal, Limited Exam date and time: 08/23/2021 5:55 AM Age: 25 years old Clinical indication: Condition or disease; Uterine condition; Other: Post par bleeding; Additional info: bleeding TECHNIQUE: Imaging protocol: Real-time limited transabdominal pelvic ultrasound with image documentation. COMPARISON: No relevant prior studies available. FINDINGS: Uterus/cervix: The uterus is enlarged measuring 17.3 x 8.1 x 7.1 cm. Uterine echotexture is heterogeneous. The endometrium is thickened measuring up to 5 cm. There is a more focal area of heterogeneous tissue with some fluid components in the endometrial cavity measuring 3.7 cm. Doppler blood flow images of the uterus were not provided. IMPRESSION: 1. Thickened heterogeneous endometrium concerning for retained products of conception and/or endometrial hemorrhage. Doppler flow imaging of the uterus and endometrium are not provided however. 2. Enlarged uterus consistent with recent state.
--- NOTE | 2021-08-25 23:25 | US ---
PROCEDURE INFORMATION: Exam: US Pelvis, Transabdominal, Limited Exam date and time: 08/23/2021 7:16 AM Age: 25 years old Clinical indication: Condition or disease; Uterine condition; Other: Residual products of conception; Patient HX: Post par bleeding - ? retained products of conception; Additional info: Pain, bleeding TECHNIQUE: Imaging protocol: Real-time limited transabdominal pelvic ultrasound with image documentation. COMPARISON: US Pelvis Non OB Ltd 08/23/2021 5:55 AM FINDINGS: Uterus/cervix: Intraoperative ultrasound was provided for assessment for and guidance for removal of retained products of conception. IMPRESSION: Intraoperative ultrasound provided for assessment for and guidance for removal of retained products of conception.
== END 2021-08-24 18:00 | disposition home or self-care (01) ==
LOC: DL.ED 14:44 → DL.MS 15:59
PROVIDERS: ADMIT Family Medicine; ATTEND Family Medicine
DX: O86.12 Endometritis following delivery (principal); O72.1 Other immediate postpartum hemorrhage; Z37.0 Single live birth; Z20.822 Contact with and (suspected) exposure to COVID-19
CPT/HCPCS: 00940; 36415; 36430; 76856; 76857; 80053; 83605; 85025; 86850; 86900; 86901; 86920; 86922; 87040; 87070; 87075; 87077; 87186; 96365; 96366; 96367; 96375; 96376; 99285-25; A9270-GY; G0378; J1100; J1580; J2250; J2270; J2590; J2704; J3010; J3490; J7030; J7120; P9016; U0002

== ENCOUNTER 2021-09-02 08:34 | Emergency (ER) | payer SELFPAY ==
--- NOTE | 2021-09-02 08:36 | EDM.PDOC ---
ED HPI GENERAL MEDICAL PROBLEM - General Chief Complaint: Behavioral/Psych Stated Complaint: IN BY AMBULANCE Time Seen by Provider: 09/02/21 08:34 Source of Information: Reports: Patient, EMS, Old Records, Provider (Dr. Nan Espinoza), RN, RN Notes Reviewed History Limitations: Reports: No Limitations - History of Present Illness INITIAL COMMENTS - FREE TEXT/NARRATIVE: Pt arrives from home by ambulance with c/o numbness and tingling around her mouth and on her tongue, and at times in the hands and left arm. Pt states she woke at 0630HRS to breast feed her when the symptoms suddenly begin. 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 Pt reports the sudden urge to have a BM with the onset of symptoms. The symptoms resolved when she tried to relax, but returned and she again had the urge to have a second BM. She reports feeling lightheaded when she got up from the toilet, and told her to cancel going to work and to call her an ambulance. Pt is very worried about possibly having iron toxicity, stroke, or some other devastating medical problem that she might be unaware of. Pt had a vaginal delivery on 08/13/21 complicated with hemorrhage and uterus expulsion. She returned 08/24/21 with hemorrhage and endometritis. Pt is quite traumatized by these events, which is complicated by chronic underlying and untreated anxiety. Pt denies chest pain, shortness of breath, syncope, rapid or irregular HR, cough, fever, chills, N/V/D/C, dysuria, abdominal pain, pelvic pain, flank pain, edema, easy bruising, or rash. Admits to mild headaches. Onset: Today, Sudden Duration: Improving, Waxing/Waning Location: Reports: Generalized Quality: Reports: Other (Denies pain) Severity: Severe Improves with: Reports: Rest Worsens with: Reports: None Associated Symptoms: Reports: No Other Symptoms Headache Pain Score (Numeric/FACES): 2 - Related Data Allergies Allergy/AdvReac Type Severity Reaction Status Date / Time No Known Allergies Allergy Verified 09/02/21 08:52 Home Meds: Home Meds Pnv No.95/Ferrous Fum/Folic AC [ Vitamins Tablet] 1 tab PO DAILY 10/30/19 [History] Acetaminophen [Tylenol] 650 mg PO Q4H PRN tablet 11/02/19 [Rx] Docusate Sodium [Colace] 100 mg PO BID PRN cap 11/02/19 [Rx] Ferrous Sulfate 325 mg PO BID tablet 11/02/19 [Rx] Ascorbic Acid [Vitamin C] 500 mg PO ASDIRECTED 09/02/21 [History] Past Medical History - Past Health History Medical/Surgical History: Denies Medical/Surgical History HEENT History: Reports: None Cardiovascular History: Reports: None, Other (See Below) Other Cardiovascular History: Primary Raynauds Respiratory History: Reports: None Gastrointestinal History: Reports: Irritable Bowel Syndrome Genitourinary History: Reports: None REVIEW COORDINATOR History: Reports: , Prolapsed Uterus, Spontaneous (1), Other (See Below) (Endometreitis) : 3 (G3, P2, 0-1, L2) Para: 2 Musculoskeletal History: Reports: None Neurological History: Reports: None Psychiatric History: Reports: Anxiety Endocrine/Metabolic History: Reports: None Hematologic History: Reports: Anemia (Acute blood loss), Blood Transfusion(s) Immunologic History: Reports: None Oncologic (Cancer) History: Reports: None Dermatologic History: Reports: None - Infectious Disease History Infectious Disease History: Reports: Chicken Pox - Past Surgical History Head Surgeries/Procedures: Reports: None HEENT Surgical History: Reports: None Cardiovascular Surgical History: Reports: None Respiratory Surgical History: Reports: None GI Surgical History: Reports: None Female Surgical History: Reports: None, D&C Neurological Surgical History: Reports: None Musculoskeletal Surgical History: Reports: None Dermatological Surgical History: Reports: None Social & Family History - Family History Family Medical History: No Pertinent Family History HEENT: Reports: None Cardiac: Reports: None Respiratory: Reports: None - Caffeine Use Caffeine Use: Reports: None - Living Situation & Occupation Living situation: Reports: , with Family ED ROS GENERAL - Review of Systems Review Of Systems: Comprehensive ROS is negative, except as noted in HPI. ED EXAM, GENERAL - Physical Exam Exam: See Below Exam Limited By: No Limitations General Appearance: Alert, WD/WN, No Apparent Distress, Anxious Eye Exam: Bilateral Eye: EOMI, Normal Inspection, PERRL Ears: Normal External Exam, Hearing Grossly Normal Nose: Normal Inspection Throat/Mouth: Normal Inspection, Normal Lips, Normal Voice, No Airway Compromise Head: Atraumatic, Normocephalic Neck: Normal Inspection, Supple, Non-Tender, Full Range of Motion Respiratory/Chest: No Respiratory Distress, Lungs Clear, Normal Breath Sounds, No Accessory Muscle Use, Chest Non-Tender Cardiovascular: Normal Peripheral Pulses, Regular Rate, Rhythm, No Edema, No Gallop, No JVD, No Murmur, No Rub GI/Abdominal: Normal Bowel Sounds, Soft, Non-Tender, No Organomegaly, No Distention, No Abnormal Bruit, No Mass (Female) Exam: Deferred Rectal (Female) Exam: Deferred Back Exam: Normal Inspection, Full Range of Motion. No: CVA Tenderness (L), CVA Tenderness (R), Vertebral Tenderness Extremities: Normal Inspection, Normal Range of Motion, Non-Tender, Normal Capillary Refill, No Pedal Edema Neurological: Alert, Oriented, CN II-XII Intact, Normal Cognition, Normal Gait, No Motor/Sensory Deficits Psychiatric: Anxious, Depressed Mood, Flat Affect Skin Exam: Warm, Dry, Intact, Normal Color, No Rash #1 Interpretation EKG Date: 09/02/21 Time: 09:42 Rhythm: Other (SR) Rate (Beats/Min): 78 [place]: Normal P-Wave: Present QRS: Other (Delta wave present (Family Hx of WPW per pt). RSR' V2) ST-T: Normal QT: Normal Comparison: NA - No Prior EKG Course - Vital Signs Last Recorded V/S: Last Vital Signs Temp 99.0 F 09/02/21 08:41 Pulse 85 09/02/21 08:41 Resp 20 09/02/21 08:41 BP 119/78 09/02/21 08:41 Pulse Ox 97 09/02/21 08:41 Orthostatic Blood Pressure [ 136/81 Standing] Orthostatic Blood Pressure [ 111/73 Sitting] Orthostatic Blood Pressure [ 118/72 Supine] Not orthostatic. - Orders/Labs/Meds Orders: Active Orders 24 hr Category Date Time Status Orthostatic Vital Signs [RC] ASDIRECTED Care 09/02/21 08:57 Active Peripheral IV Care [RC] . DIRECTED Care 09/02/21 08:57 Active Sodium Chloride 0.9% [Normal Saline] 1,000 ml Med 09/02/21 09:15 Active IV ASDIRECTED Sodium Chloride 0.9% [Saline Flush] Med 09/02/21 08:56 Active 10 ml FLUSH ASDIRECTED PRN Peripheral IV Insertion Adult [OM.PC] Stat Oth 09/02/21 08:56 Ordered Medication Orders Sodium Chloride (Normal Saline) 1,000 mls @ 998 mls/hr IV ASDIRECTED KENISHA Last Admin: 09/02/21 09:36 Dose: 998 mls/hr Documented by: JOE Sodium Chloride (Sodium Chloride 0.9% 10 Ml Syringe) 10 ml FLUSH ASDIRECTED PRN PRN Reason: Keep Vein Open Labs: Laboratory Tests 09/02/21 09/02/21 09/02/21 Range/Units 09:08 09:08 09:08 WBC 14.6 H (5.0-10.0) 10^3/uL RBC 3.70 L (4.2-5.4) 10^6/uL Hgb 10.9 L D (12.0-16.0) g/dL Hct 34.4 L (37.0-47.0) % MCV 93.0 (80-100) fL MCH 29.5 (27.0-34.0) pg MCHC 31.7 L (33.0-35.0) g/dL Plt Count 534 H D (150-450) 10^3/uL Neut % (Auto) 83.9 H (42.2-75.2) % Lymph % (Auto) 10.6 L (20.5-50.1) % [place] % (Auto) 4.8 (2-8) % Eos % (Auto) 0.5 L (1.0-3.0) % Baso % (Auto) 0.2 (0.0-1.0) % Sodium 142 (136-145) mmol/L Potassium 3.6 (3.5-5.1) mmol/L Chloride 106 (98-107) mmol/L Carbon Dioxide 25 (21-32) mmol/L Anion Gap 14.6 H (7-13) mEq/L BUN 15 (7-18) mg/dL Creatinine 0.84 (0.55-1.02) mg/dL Est Cr Clr Drug Dosing 100.78 mL/min Estimated GFR (MDRD) > 60 BUN/Creatinine Ratio 17.9 (No establ ref range) Glucose 98 (70-99) mg/dL Calcium 8.7 (8.5-10.1) mg/dL Magnesium 2.0 (1.8-2.4) mg/dL Iron 14 L (50-170) ug/dL TIBC 365 (250-450) ug/dL % Saturation 3.8 L (20.0-50.0) % Total Bilirubin 0.4 (0.2-1.0) mg/dL AST 15 (15-37) U/L ALT 24 (14-59) U/L Alkaline Phosphatase 129 H (46-116) U/L Total Protein 7.1 (6.4-8.2) g/dL Albumin 3.5 (3.4-5.0) g/dL Globulin 3.6 Albumin/Globulin Ratio 1.0 TSH, Ultra Sensitive 0.68 (0.36-3.74) uIU/mL Urine Color (YELLOW) Urine Appearance (CLEAR) Urine pH (5.0-9.0) Ur Specific [place] (1.005-1.030) Urine Protein (NEGATIVE) Urine Glucose (UA) (NEGATIVE) Urine Ketones (NEGATIVE) Urine Occult Blood (NEGATIVE) Urine Nitrite (NEGATIVE) Urine Bilirubin (NEGATIVE) Urine Urobilinogen (0.2-1.0) mg/dL Ur Leukocyte Esterase (NEGATIVE) Urine RBC (0-5) /HPF Urine WBC (0-5/HPF) /HPF Ur Epithelial Cells (NOT SEEN) /HPF Urine Bacteria (0-FEW/HPF) /HPF 09/02/21 Range/Units 09:20 WBC (5.0-10.0) 10^3/uL RBC (4.2-5.4) 10^6/uL Hgb (12.0-16.0) g/dL Hct (37.0-47.0) % MCV (80-100) fL MCH (27.0-34.0) pg MCHC (33.0-35.0) g/dL Plt Count (150-450) 10^3/uL Neut % (Auto) (42.2-75.2) % Lymph % (Auto) (20.5-50.1) % [place] % (Auto) (2-8) % Eos % (Auto) (1.0-3.0) % Baso % (Auto) (0.0-1.0) % Sodium (136-145) mmol/L Potassium (3.5-5.1) mmol/L Chloride (98-107) mmol/L Carbon Dioxide (21-32) mmol/L Anion Gap (7-13) mEq/L BUN (7-18) mg/dL Creatinine (0.55-1.02) mg/dL Est Cr Clr Drug Dosing mL/min Estimated GFR (MDRD) BUN/Creatinine Ratio (No establ ref range) Glucose (70-99) mg/dL Calcium (8.5-10.1) mg/dL Magnesium (1.8-2.4) mg/dL Iron (50-170) ug/dL TIBC (250-450) ug/dL % Saturation (20.0-50.0) % Total Bilirubin (0.2-1.0) mg/dL AST (15-37) U/L ALT (14-59) U/L Alkaline Phosphatase (46-116) U/L Total Protein (6.4-8.2) g/dL Albumin (3.4-5.0) g/dL Globulin Albumin/Globulin Ratio TSH, Ultra Sensitive (0.36-3.74) uIU/mL Urine Color Yellow (YELLOW) Urine Appearance Clear (CLEAR) Urine pH 5.5 (5.0-9.0) Ur Specific [place] >= 1.030 (1.005-1.030) Urine Protein Negative (NEGATIVE) Urine Glucose (UA) Negative (NEGATIVE) Urine Ketones Negative (NEGATIVE) Urine Occult Blood Trace-intact H (NEGATIVE) Urine Nitrite Negative (NEGATIVE) Urine Bilirubin Negative (NEGATIVE) Urine Urobilinogen 0.2 (0.2-1.0) mg/dL Ur Leukocyte Esterase Negative (NEGATIVE) Urine RBC 0-5 (0-5) /HPF Urine WBC 0-5 (0-5/HPF) /HPF Ur Epithelial Cells Rare (NOT SEEN) /HPF Urine Bacteria Few (0-FEW/HPF) /HPF Meds: Medications Generic Name Dose Route Start Last Admin Trade Name Freq PRN Reason Stop Dose Admin Sodium Chloride 1,000 mls @ 998 mls/hr 09/02/21 09:15 09/02/21 09:36 Normal Saline IV 998 mls/hr ASDIRECTED KENISHA Administration Sodium Chloride 10 ml 09/02/21 08:56 Sodium Chloride 0.9% 10 Ml Syringe FLUSH ASDIRECTED PRN Keep Vein Open Discontinued Medications Generic Name Dose Route Start Last Admin Trade Name Neymar PRN Reason Stop Dose Admin Acetaminophen 650 mg 09/02/21 10:33 Acetaminophen 325 Mg Tab PO 09/02/21 10:34 NOW ONE Alprazolam 0.25 mg 09/02/21 09:17 09/02/21 09:31 Alprazolam 0.25 Mg Tab PO 09/02/21 09:18 0.25 mg ONETIME ONE Administration - Re-Assessments/Exams Free Text/Narrative Re-Assessment/Exam: 09/02/21 10:44 I explained the exam findings, EKG, and lab results to the pt. I seen no in dication for imaging studies at this time as pt has a benign lab work up, and normal exam with no neuro. deficits. Pt is clearly anxious about health issues, depressed and/or traumatized by her OB complications. I have discussed the case with Dr. Espinoza, who plans to initiate Zoloft tx and will f/u for further evaluation and possible WPW. Departure - Departure Time of Disposition: 10:49 Disposition: Home, Self-Care 01 Condition: Good Clinical Impression: Acute stress reaction Iron deficiency anemia Qualifiers: Iron deficiency anemia type: unspecified iron deficiency Qualified Code(s): D50.9 - Iron deficiency anemia, unspecified - Discharge Information *PRESCRIPTION DRUG MONITORING PROGRAM REVIEWED*: Not Applicable *COPY OF PRESCRIPTION DRUG MONITORING REPORT IN PATIENT DIAMOND: Not Applicable Instructions: Iron Deficiency Anemia, Adult, Managing Stress, Adult, Panic Attack, [id number] Forms: ED Department Discharge Additional Instructions: Your blood count is improving, but iron is still low. Continue your iron supplements. Dr. Espinoza has a prescription waiting for you at clinic pharmacy which she would like you to start taking now. Follow up in clinic with Dr. Espinoza this week for recheck of your symptoms, and for further evaluation due to family history of WPW (cardiac arrhythmia). Sepsis Event Note (ED) - Focused Exam Vital Signs: Vital Signs Temp Pulse Resp BP Pulse Ox 09/02/21 08:41 99.0 F 85 20 119/78 97 - My Orders Last 24 Hours: My Active Orders 09/02/21 08:56 Sodium Chloride 0.9% [Saline Flush] 10 ml FLUSH ASDIRECTED PRN Peripheral IV Insertion Adult [OM.PC] Stat 09/02/21 08:57 Orthostatic Vital Signs [RC] ASDIRECTED Peripheral IV Care [RC] . DIRECTED 09/02/21 09:15 Sodium Chloride 0.9% [Normal Saline] 1,000 ml IV ASDIRECTED - Assessment/Plan Last 24 Hours: My Active Orders 09/02/21 08:56 Sodium Chloride 0.9% [Saline Flush] 10 ml FLUSH ASDIRECTED PRN Peripheral IV Insertion Adult [OM.PC] Stat 09/02/21 08:57 Orthostatic Vital Signs [RC] ASDIRECTED Peripheral IV Care [RC] . DIRECTED 09/02/21 09:15 Sodium Chloride 0.9% [Normal Saline] 1,000 ml IV ASDIRECTED
[2021-09-02] MEDS ORDERED: Sodium Chloride 0.9% 10 ML Syringe FLUSH PRN (08:56)
[2021-09-02] MEDS ORDERED: Sodium Chloride 0.9% 1,000 ML IV SCH (09:15)
[2021-09-02] MEDS ORDERED: ALPRAZolam 0.25 MG Tab PO ONE (09:17)
[2021-09-02 09:41] LABS: ANION GAP 14.6 mEq/L (7-13); CHLORIDE,CL 106 mmol/L (98-107); SODIUM,NA 142 mmol/L (136-145)
[2021-09-02] MEDS ORDERED: Acetaminophen 325 MG Tab PO ONE (10:33)
== END 2021-09-02 11:15 | disposition home or self-care (01) ==
LOC: DL.ED 08:34
DX: F43.0 Acute stress reaction (principal); D50.9 Iron deficiency anemia, unspecified; Z79.899 Other long term (current) drug therapy
CPT/HCPCS: 36415; 80053; 81001; 83540; 83550; 83735; 84443; 85025; 93005; 99284-25; A9270-GY; J7030